=== PATIENT | male | born 1945 | race Caucasian/White ===

== ENCOUNTER 2018-01-11 21:02 | Emergency (ER) | END 2018-01-12 07:29 | disposition short-term general hospital (02) ==

== ENCOUNTER 2018-04-26 02:55 | Observation (INO) | END 2018-04-27 12:37 | disposition home health service (06) ==

== ENCOUNTER 2018-10-09 07:00 | Day surgery (SDC) | payer MEDICARE, OTHER ==
--- NOTE | 2018-10-08 13:09 | PREOPHP ---
DATE OF ADMISSION: 10/09/2018 HISTORY OF PRESENT ILLNESS: This 72-year-old patient is admitted for elective cataract surgery of th e right eye. The patient notes a history of decreased vision over the past year's time without prio r history of eye disease or injury. The patient does have a history of prior coronary artery bypass graft surgery in 2001. CURRENT MEDICATIONS: Include: 1. Amlodipine. 2. Rosuvastatin. 3. Metoprolol. 4. Potassium chloride. 5. Furosemide. 6. Tamsulosin. 7. Finasteride. 8. Esomeprazole. 9. Plavix. The patient has discontinued the tamsulosin and the Plavix prior to surgery. ALLERGIES: 1. PENICILLIN. 2. MORPHINE. PHYSICAL EXAMINATION: The visual acuity with best correction is 20/70 in the right eye and 20/30 in the left eye. Slit lamp examination reveals anterior cortical nuclear sclerotic and posterior subcap sular cataract in the right eye. The left eye has anterior cortical and nuclear sclerotic cataract c hanges. Applanation tonometry is 17 mmHg. Examination of the retina is within normal limits. DIAGNOSIS: Mixed cataract, right eye. PLAN: Cataract extraction with lens implant, right eye. The risks and alternatives to the surgery h ave been discussed with the patient, and the patient has opted to proceed with surgery in hopes of im proving visual acuity leading to greater ability to perform activities of daily living. Dictated By: MELONIE NINO/SHANTELLE Conf#: [id number] DID#: [id number]
[2018-10-09] VITALS (18 sets, daily range): BP systolic 108–169; BP diastolic 57–83; PULSE 64–78; RESP 18–25; Ht 172.7 cm; Wt 94.9 kg
[~2018-10-09] VITALS: Ht 172.7 cm; Wt 94.9 kg
[~2018-10-09 07:00] MED LIST: AZIT250T13 PO; CLOP75TA19 PO; CYCLOPENTOLATE/PHENYLEPH 2 ML OPH RIGHT EYE SCH; DICLOFENAC 0.1% 2.5 ML OPH RIGHT EYE SCH; ESOM40CA PO; FURO40TA4 PO; HYDR-3980 PO; ISOS20TA19 PO; LINA145C PO; LOSA50TA2 PO; METO-429 PO; MOXIFLOXACIN 0.5% 3 ML OPH RIGHT EYE SCH; POLY15DR30 BOTH EYES; POTA10TA37 PO; ROSU10TA55 PO; SOD CHLORIDE 0.9% 1,000 ML IV SCH; TAMS0.4C2 PO; TROPICAMIDE 1% 15 ML OPH RIGHT EYE SCH
[2018-10-09] MEDS ORDERED: METO-429 PO (07:35)
[2018-10-09] MEDS ORDERED: ISOS10TA2 PO (07:36)
[2018-10-09] MEDS ORDERED: AMLO-147 PO (07:36)
[2018-10-09] MEDS ORDERED: POTA8TAB2 PO (07:37)
[2018-10-09] MEDS ORDERED: hydrALAzine 20 MG INJ ONE ×2 (08:00→08:55)
--- NOTE | 2018-10-09 08:03 | PREAC ---
Date/Time of Note Date/Time of Note DATE: 10/09/18 TIME: 08:00 Anesthesia Eval and Record Evaluation Time Pre-Procedure Interview DATE: 10/09/18 TIME: 08:00 Age 72 Sex male NPO: 8 hrs (for solids. >2 hours for clears (water)) Preoperative diagnosis right cataract Planned procedure right cataract extraction, intraocular lens implant Past Medical History Past Medical History: Includes Cardio: HTN, CAD, PTCA/Stent, CHF Pulm: COPD, Other (lung cancer ) Renal: BPH GI: GERD Surgery & Anesthesia Issues No known issue Meds Anticoagulation: Yes (plavix held x 1 week) Beta Melody within 24 hr: Yes Reason Beta Melody not given: Bradycarida, Hypotension Reported Medications Potassium Chloride* (Klor-Con*) 8 Meq Tablet.sa, 8 MEQ PO BID, TAB 10/09/18 Amlodipine Besylate* (Amlodipine Besylate*) 10 Mg Tablet, 10 MG PO DAILY, #30 TAB 10/09/18 Isosorbide Dinitrate* (Isosorbide Dinitrate*) 10 Mg Tablet, 10 MG PO TID, TAB 10/09/18 Tamsulosin Hcl* (Tamsulosin Hcl*) 0.4 Mg Cap.er.24h, 0.4 MG PO BID, CAP 04/25/18 Furosemide* (Furosemide*) 40 Mg Tablet, 40 MG PO DAILY, TAB 04/25/18 Clopidogrel Bisulfate* (Clopidogrel Bisulfate*) 75 Mg Tablet, 75 MG PO DAILY, #30 TAB 04/25/18 Discontinued Reported Medications Metoprolol Tartrate* (Lopressor*) 50 Mg Tab, 50 MG PO BID, #60 TAB 10/09/18 Hydrocodone/Acetaminophen ([place] 10-325 Tablet) 1 Each Tablet, 1 EACH PO NEEDED, TAB 04/25/18 Linaclotide (LINZESS) 145 Mcg Capsule, 145 MCG PO DAILY, #30 CAP 04/25/18 Rosuvastatin Calcium* (Crestor*) 10 Mg Tablet, 10 MG PO QHS, #30 TAB 04/25/18 Potassium Chloride* (K-Dur*) 10 Meq Tab.prt.sr, 10 MEQ PO DAILY, TAB 04/25/18 Esomeprazole Mag Trihydrate (Nexium) 40 Mg Capsule.dr, 40 MG PO DAILY, #30 CAP 04/25/18 Discontinued Scripts Metoprolol Tartrate* (Lopressor*) 50 Mg Tab, 25 MG PO BID, #60 TAB Prov:MELINA SIMPSON MD 04/27/18 Polyvinyl Alcohol* (Polyvinyl Alcohol*) 15 Ml Drops, 2 DROP BOTH EYES QID PRN for red eyes, #1 BOTTLE Prov:MELINA SIMPSON MD 04/26/18 Azithromycin* (Azithromycin*) 250 Mg Tablet, 250 MG PO DAILY, #4 TAB Prov:MELINA SIMPSON MD 04/26/18 Isosorbide Dinitrate* (Isosorbide Dinitrate*) 20 Mg Tablet, 20 MG PO TID for 30 Days, #90 TAB Prov:MELINA SIMPSON MD 04/26/18 Losartan Potassium* (Cozaar*) 50 Mg Tablet, 50 MG PO DAILY for 30 Days, #30 TAB Prov:MELINA SIMPSON MD 04/26/18 Current Medications Diclofenac Sodium (Voltaren 0.1%) 1 drop Q5 MIN X 3 RIGHT EYE Last administered on 10/09/18 07:39; Admin Dose 1 DROP; Start 10/09/18 at 06:00 Tropicamide (Mydriacyl 1%) 1 drop Q5 MIN X3 RIGHT EYE Last administered on 10/09/18 07:39; Admin Dose 1 DROP; Start 10/09/18 at 06:00 Moxifloxacin HCl (Vigamox) 1 drop Q5 MIN X 3 RIGHT EYE Last administered on 10/09/18 07:38; Admin Dose 1 DROP; Start 10/09/18 at 06:00 Cyclopentolate/ Phenylephrine (Cyclomydril Oph 2 ml) 1 drop Q5 MIN X 3 RIGHT EYE Last administered on 10/09/18 07:38; Admin Dose 1 DROP; Start 10/09/18 at 06:00 Sodium Chloride 1,000 ml @ 25 mls/hr Q24H IV Last administered on 10/09/18 07:38; Admin Dose 25 MLS/HR; Start 10/09/18 at 06:00 Meds reviewed: Yes Allergies Coded Allergies: Penicillins (Verified Allergy, Unknown, 10/09/18) meperidine HCl (Verified Allergy, Unknown, 10/09/18) morphine (Verified Allergy, Unknown, 10/09/18) Allergies Reviewed: Yes Labs/Studies Labs Reviewed: Reviewed by anesthesiologist test: N/A Studies: ECG Pre-procedure Exam Last vitals Vital Signs Date Temp Pulse Resp B/P (MAP) Pulse Ox O2 O2 Flow FiO2 Time Delivery Rate 10/09/18 97.9 70 20 169/83 96 Room Air 07:51 (111) Airway: Adequate mouth opening, Adequate thyromental dist Mallampati: Mallampati II Teeth: Normal Lung: Normal Heart: Normal ASA Physical Status ASA physical status: 3 Emergency: None Planned Anesthetic General/MAC: Mask Planned Pain Management Parenteral pain med Pre-operative Attestations Prior to commencing anesthesia and surgery, the patient was re-evaluated, there was verification of: *The patient's identity *The results of appropriate recent lab work and preoperative vital signs *The above evaluation not changing prior to induction *Anesthetic plan, risk benefits, alternative and complications discussed with patient/family; questions answered; patient/family understands, accepts and wishes to proceed. DIANA HINDS MD Oct 09, 2018 08:03
[2018-10-09] MEDS ORDERED: hydrALAzine 20 MG INJ IV ONE (08:15)
[2018-10-09] MEDS ORDERED: FENTAnyl 50 MCG/ML VIAL IV PRN (08:30)
[2018-10-09] MEDS ORDERED: ONDANSETRON 4 MG INJ IV PRN (08:30)
[2018-10-09] MEDS ORDERED: hydrALAzine 20 MG INJ IV PRN (08:30)
[2018-10-09] MEDS ORDERED: HYDROmorphONE 1 MG/5 ML IV SYRINGE IV PRN ×2 (08:30)
[2018-10-09] MEDS ORDERED: LABETALOL HCL 20MG INJ IV PRN (08:30)
[2018-10-09] MEDS ORDERED: OXYCODONE/ACETAMINOPHEN (5/325) TAB PO PRN (08:30)
[2018-10-09] MEDS ORDERED: DIPHENHYDRAMINE 50 MG INJ IV PRN (08:30)
[2018-10-09] MEDS ORDERED: FENTAnyl 50 MCG/ML VIAL ONE (08:38)
[2018-10-09] MEDS ORDERED: MIDAZOLAM 1 MG/ML 2 ML INJ ONE (08:38)
[2018-10-09] MEDS ORDERED: PROPOFOL 20 ML ONE (08:55)
--- NOTE | 2018-10-09 09:32 | SIPON ---
Date/Time of Note Date/Time of Note DATE: 10/09/18 TIME: 09:30 Operative Report Preoperative Diagnosis cortical & posterior subcapsular cataract od Postoperative Diagnosis same Operation/Procedure Performed cataract extraction with lens implant od Surgeon melonie julio psychiatric assistant none Anesthesia: MAC Estimated blood loss: none Transfusion Required none Specimen none Grafts/Implants posterior chamber lens implant Complications none MELONIE JULIO MD Oct 09, 2018 09:31
[2018-10-09] MEDS ORDERED: NA HYALURONATE/CHONDROITIN 0.5 ML SYG ONE (09:33)
[2018-10-09] MEDS ORDERED: DEXAMETHASONE 4 MG/ML 1 ML INJ ONE (09:33)
[2018-10-09] MEDS ORDERED: LIDOCAINE 4% (MPF) 5 ML INJ ONE (09:33)
[2018-10-09] MEDS ORDERED: GENTAMICIN 80 MG INJ ONE (09:33)
--- NOTE | 2018-10-09 09:33 | PAC ---
Date/Time of Note Date/Time of Note DATE: 10/09/18 TIME: 09:31 Post-Anesthesia Notes Post-Anesthesia Note Last documented vital signs Vital Signs Date Temp Pulse Resp B/P (MAP) Pulse Ox O2 O2 Flow FiO2 Time Delivery Rate 10/09/18 97.9 70 20 169/83 96 Room Air 07:51 (111) Activity: WNL Respiratory function: WNL Cardiovascular function: WNL Mental status: Baseline Pain reasonably controlled: Yes Hydration appropriate: Yes Nausea/Vomiting absent: Yes Comments BP: 138/64 HR: 67 RR: 15 T: 98 SaO2: 96% room air DIANA HINDS MD Oct 09, 2018 09:33
[2018-10-09] MEDS ORDERED: CARBACHOL 0.01% 1.5 ML OPH INJ ONE (09:34)
--- NOTE | 2018-10-09 10:08 | OPR ---
DATE OF OPERATION: 10/09/2018 PREOPERATIVE DIAGNOSIS: Cortical and posterior subcapsular cataract, right eye. POSTOPERATIVE DIAGNOSIS: Cortical and posterior subcapsular cataract, right eye. OPERATION PERFORMED: Cataract extraction with lens implant, right eye. SURGEON: Melonie Julio M.D. ANESTHESIA: Local standby. ANESTHESIOLOGIST: Dr. Keller. PROCEDURE: The patient was brought to the operating room and placed on the table with an IV in place and the patient attached to an court monitor. Oxygen was given via face mask. After some intravenous sedation was administered, local anesthesia was given using Xylocaine 2% with epinephrine, mixed with Marcaine 0.5%. This was given in a lid block and retrobulbar injection. The patient was then prepped and draped in the usual sterile manner. A wire lid speculum was inserted between the lids of the right eye. A Superblade was used to enter the anterior chamber at the corneoscleral limbus at the 10:30 o'clock position. A separate incision was made using a 3.0-mm keratome which entered the corneoscleral junction at the 12 o'clock position. Through this 3-mm opening, an irrigating cystotome was introduced into the anterior chamber. The chamber was filled with Viscoat and an anterior capsulotomy was performed. Balanced salt solution was then used for hydrodissection of the lens. A phacoemulsification handpiece was then brought into the field and introduced into the anterior chamber. The lens nucleus was emulsified using a deep groove and cracking the nucleus into quadrants. Following this, each quadrant was aspirated and emulsified at the pupillary margin. After this was completed, the irrigation/aspiration handpiece was brought to the field, introduced into the posterior chamber, and the lens cortical material was removed. When this was completed, additional Viscoat was injected into the anterior and posterior chambers. The 3-mm opening had its internal lips enlarged, and then the posterior chamber intraocular lens measuring 20.5 diopters ([employer] model LI61AO) was then injected into the posterior chamber using the lens injector system. As the lens was implanted into the posterior chamber it noted that the leading haptic broke through the capsule and the lens optic appeared to move slightly posteriorly. At this point, it was decided to enlarge the corneal wound to a 5 mm and remove the lens implant and then a limited anterior vitrectomy was performed until there was no vitreous in the anterior chamber or at the lips of the wound. Examination of the posterior chamber revealed that there was sufficient peripheral capsular support for a posterior chamber intraocular lens and then Provisc was injected into the posterior chamber to clearly define the zone anterior to the lens capsule. The lens was reinserted into the posterior chamber with the haptics resting on the peripheral capsule lens remained stable and despite external pressure on the eye. A Sinskey hook was then used to rotate the intraocular lens so that the lips were oriented in the horizontal meridian. A total of 3 10-0 nylon sutures were placed. Prior to tying, the irrigation/aspiration handpiece was reintroduced into the anterior chamber to remove the Provisc. Miochol was instilled to constrict the pupil, and then the 10-0 nylon sutures were tied. The ends were cut short and then the knot was buried. The speculum was removed and an injection containing 0.5 mL of gentamicin and 0.5 mL of dexamethasone was injected into the sub-Tenon space inferiorly and then Ciprofloxacin drops placed on the surface of the eye and a patch was applied and the patient left the operating room in satisfactory condition. Dictated By: MELONIE NINO/SHANTELLE Conf#: [id number] DID#: [id number] CC: MELONIE JULIO MD;*EndCC* MTDD
== END 2018-10-09 11:10 | disposition home or self-care (01) ==
LOC: SDS 07:00
PROVIDERS: ATTEND Ophthalmology
DX: H25.041 Posterior subcapsular polar age-related cataract, right eye (principal); I11.0 Hypertensive heart disease with heart failure; I50.9 Heart failure, unspecified; I25.10 Atherosclerotic heart disease of native coronary artery without angina pectoris; J44.9 Chronic obstructive pulmonary disease, unspecified
CPT/HCPCS: 66984; J0360; J1100; J1580; J2250; J3010; J7030; V2632

== ENCOUNTER 2019-01-05 21:37 | Inpatient (IN) | payer MEDICARE, OTHER ==
[~2019-01-05] VITALS: Ht 172.7 cm; Wt 96.7 kg
[~2019-01-05 21:37] MED LIST changes: +AMLO-147 PO; -AZIT250T13 PO; -CYCLOPENTOLATE/PHENYLEPH 2 ML OPH RIGHT EYE SCH; -DICLOFENAC 0.1% 2.5 ML OPH RIGHT EYE SCH; -ESOM40CA PO; -HYDR-3980 PO; +ISOS10TA2 PO; -ISOS20TA19 PO; -LINA145C PO; -LOSA50TA2 PO; -METO-429 PO; -MOXIFLOXACIN 0.5% 3 ML OPH RIGHT EYE SCH; -POLY15DR30 BOTH EYES; -POTA10TA37 PO; +POTA8TAB2 PO; -ROSU10TA55 PO; -SOD CHLORIDE 0.9% 1,000 ML IV SCH; -TROPICAMIDE 1% 15 ML OPH RIGHT EYE SCH
[2019-01-05] MEDS ORDERED: AZITHROMYCIN 500MG/NS (PMX) 250 ML IV STA (22:07)
[2019-01-05] MEDS ORDERED: ALBUTEROL 0.083% (NEB) 2.5 MG/3 ML AMP NEB STA (22:07)
[2019-01-05] MEDS ORDERED: CEFTRIAXONE 1 GM/50 ML (PMX) 50 ML IVPB STA (22:07)
[2019-01-05] MEDS ORDERED: SODIUM CHLORIDE 0.9% 1L BAG IV* STA (22:07)
[2019-01-05] MEDS ORDERED: IPRATROPIUM (NEB) 0.5 MG/2.5 ML AMP NEB STA (22:07)
--- NOTE | 2019-01-05 22:09 | ERD ---
ER Documentation Chief Complaint Chief Complaint generalize body weakness/sob x 2 weeks. hx of lung ca HPI 73-year-old male with a history of COPD and lung cancer status post radiation treatment presenting with generalized body weakness and shortness of breath that has been worsening over the past 2 weeks. Patient states that he never followed up for his cancer treatment after the radiation therapy done at [facility]. Last night he noticed that he had a fever. He continuously has a dry cough that has not changed. However he has been getting increasingly short of breath. He denies any associated chest pain, leg swelling, or decrease in urination. No hemoptysis. ROS All systems reviewed and are negative except as per history of present illness. Medications Home Meds Reported Medications Potassium Chloride* (Klor-Con*) 8 Meq Tablet.sa, 8 MEQ PO BID, TAB 10/09/18 Amlodipine Besylate* (Amlodipine Besylate*) 10 Mg Tablet, 10 MG PO DAILY, #30 TAB 10/09/18 Isosorbide Dinitrate* (Isosorbide Dinitrate*) 10 Mg Tablet, 10 MG PO TID, TAB 10/09/18 Tamsulosin Hcl* (Tamsulosin Hcl*) 0.4 Mg Cap.er.24h, 0.4 MG PO BID, CAP 04/25/18 Furosemide* (Furosemide*) 40 Mg Tablet, 40 MG PO DAILY, TAB 04/25/18 Clopidogrel Bisulfate* (Clopidogrel Bisulfate*) 75 Mg Tablet, 75 MG PO DAILY, #30 TAB 04/25/18 Allergies Allergies: Coded Allergies: Penicillins (Verified Allergy, Unknown, 10/09/18) meperidine HCl (Verified Allergy, Unknown, 10/09/18) morphine (Verified Allergy, Unknown, 10/09/18) PMhx/Soc History of Surgery: Yes (cabg,cardiac stent) Anesthesia Reaction: No Hx Neurological Disorder: No Hx Respiratory Disorders: Yes (Lung cancer, COPD) Hx Cardiac Disorders: Yes (htn,CABG,CARDIAC STENTS,CHF) Hx Psychiatric Problems: No Hx Miscellaneous Medical Probl: No Hx Alcohol Use: No Hx Substance Use: No Hx Tobacco Use: No Smoking Status: Never smoker FmHx Family History: coronary disease; No diabetes Physical Exam Vitals Vital Signs Date Temp Pulse Resp B/P (MAP) Pulse Ox O2 O2 Flow FiO2 Time Delivery Rate 01/05/19 88 20 94 Nasal 2.0 23:07 Cannula 01/05/19 90 27 148/77 94 Nasal 2.0 22:58 (100) Cannula 01/05/19 Nasal 21:53 Cannula 01/05/19 98.9 86 18 154/75 79 21:39 (101) Physical Exam Const: Chronically ill-appearing, appears to be in respiratory distress but speaking in full sentences Head: Atraumatic Eyes: Normal Conjunctiva ENT: Dry mucous membranes. Normal External Ears, Nose and Mouth. Neck: Full range of motion. No meningismus. +JVD Resp: Diminished breath sounds bilaterally with mild wheezing Cardio: Regular rate and rhythm, no murmurs Abd: Soft, non tender, non distended. Normal bowel sounds Skin: No petechiae or rashes Back: No midline or flank tenderness Ext: No cyanosis, trace bilateral lower extremity edema. No calf tenderness Neur: Awake and alert Psych: Normal Mood and Affect Result Diagram: 01/05/19214801/05/192148 Results 24 hrs Laboratory Tests Test 01/05/19 21:49 01/05/19 21:51 01/05/19 21:57 White Blood Count 10.9 10^3/ul Red Blood Count 5.11 10^6/ul Hemoglobin 14.2 g/dl Hematocrit 46.8 % Mean Corpuscular Volume 91.6 fl Mean Corpuscular 27.8 pg Hemoglobin Mean Corpuscular 30.3 g/dl Hemoglobin Concent Red Cell Distribution 13.8 % Width Platelet Count 239 10^3/UL Mean Platelet Volume 10.9 fl Immature Granulocytes % 0.300 % Neutrophils % 72.6 % Lymphocytes % 17.1 % Monocytes % 7.8 % Eosinophils % 1.7 % Basophils % 0.5 % Nucleated Red Blood Cells 0.0 /100WBC % Immature Granulocytes # 0.030 10^3/ul Neutrophils # 7.9 10^3/ul Lymphocytes # 1.9 10^3/ul Monocytes # 0.9 10^3/ul Eosinophils # 0.2 10^3/ul Basophils # 0.1 10^3/ul Nucleated Red Blood Cells 0.0 10^3/ul # Prothrombin Time 13.7 Sec Prothrombin Time Ratio 1.1 INR International 1.04 Normalized Ratio Activated 39.9 Sec Partial Thromboplast Time Sodium Level 142 mmol/L Potassium Level 4.1 mmol/L Chloride Level 99 mmol/L Carbon Dioxide Level 36 mmol/L Anion Gap 7 Blood Urea Nitrogen 27 mg/dl Creatinine 1.46 mg/dl Est Glomerular Filtrat mL/min Rate mL/min Glucose Level 118 mg/dl Calcium Level 8.1 mg/dl Total Bilirubin 0.6 mg/dl Direct Bilirubin 0.00 mg/dl Indirect Bilirubin 0.6 mg/dl Aspartate Amino 39 IU/L Transf (AST/SGOT) Alanine 45 IU/L Aminotransferase (ALT/SGPT ) Alkaline Phosphatase 76 IU/L Troponin I 0.649 ng/ml B-Type Natriuretic Peptide 2870 PG/ML Total Protein 7.3 g/dl Albumin 3.8 g/dl Globulin 3.50 g/dl Albumin/Globulin Ratio 1.08 Blood Gas Specimen Source Blood arterial Arterial Blood Date Drawn 01/05/2019 9:55:43 PM Arterial Blood pH 7.326 (Temp corrected) Arterial Blood pCO2 65.4 mmhg (Temp correct) Arterial Blood pO2 67.7 mmHG (Temp corrected) Arterial Blood HCO3 33.4 mmol/L Arterial Blood Base Excess 5.1 mmol/L Arterial Blood 92.3 mmHG Oxygen Saturation Levon Test ACCEPTAB Arterial Blood Gas Right Radial Puncture Site Arterial 1.3 % Blood Carboxyhemoglobin Arterial Blood 0.3 % Methemoglobin Blood Gas A-a O2 47.5 mmHg Differential Oxyhemoglobin Percent 90.8 % Blood Gas Temperature 37.0 C Blood Gas Modality NASAL CANNULA FiO2 27.0 % Blood Gas Notified Whom MM Blood Gas Notified Time 01/05/2019 10:03:18 PM POC Venous Lactate 0.7 mmol/L Current Medications Medications Dose Sig/Chantelle Start Time Status Last (Trade) Ordered Route PRN Stop Time Admin Dose Reason Admin Sodium 2,050 ml BOLUS OVER 2 01/05/19 DC 01/05/19 Chloride HOURS STAT 22:07 22:17 (NS) IV* 01/05/19 22:09 Ceftriaxone 50 ml @ ONCE STAT 01/05/19 DC 01/05/19 Sodium 100 mls/hr IVPB 22:07 22:17 01/05/19 22:36 Azithromycin 250 ml @ ONCE STAT 01/05/19 DC 01/05/19 250 mls/hr IV 22:07 22:40 01/05/19 23:06 Albuterol 5 mg ONCE STAT 01/05/19 DC 01/05/19 (Proventil NEB 22:07 23:07 0.083% (Neb)) 01/05/19 22:09 Ipratropium 0.5 mg ONCE STAT 01/05/19 DC 01/05/19 [place] NEB 22:07 23:07 (Atrovent 01/05/19 22:09 0.02% (Neb)) Aspirin 162 mg ONCE ONCE 01/05/19 DC 01/05/19 (Aspirin) PO 23:00 22:42 01/05/19 23:01 1 tab ONCE ONCE 01/05/19 DC 01/05/19 Acetaminophen PO 23:30 23:04 / 01/05/19 23:31 Hydrocodone Bitart ([place] (10)) Zolpidem 5 mg HS 01/05/19 Tartrate REPEAT X 1 23:30 (Ambien) PRN PO INSOMNIA Ondansetron 4 mg Q4 PRN IV 01/05/19 HCl (Zofran nausea 23:30 Inj) Morphine 2 mg Q4 PRN IV 01/05/19 Sulfate moderate pain 23:30 (morphine) Procedures/MDM EMERGENT LABS AND DIAGNOSTIC STUDIES: Lab Results above were reviewed and interpreted by me. CBC: no anemia or evidence of infection CMP: Evidence of renal failure with BUN and creatinine elevation. No evidence of clinically significant electrolyte abnormality, acidosis, hypoglycemia, liver disease, or biliary obstruction Troponin elevated, concerning for cardiac ischemia Lactate within normal limits without evidence of sepsis or tissue hypoperfusion ABG shows mild acidosis with hypercapnia and hypoxemia 12-lead EKG was interpreted by Martha Palafox MD: Normal Sinus Rhythm with ventricular rate of 74 beats per minute LVH with repolarization abnormality diffuse T wave inversions Abnormal EKG, no STEMI Radiology Results as interpreted by Radiology below were reviewed by Hao Palafox MD: Chest x-ray: IMPRESSION: 1. Cardiomegaly and new mild failure. 2. Differential considerations include interval right lung base pneumonia, with superimposed mild failure. Initial Nursing notes reviewed. Previous Medical Records requested via the Electronic Health Record. EMERGENCY DEPARTMENT COURSE / MEDICAL DECISION MAKING: Admit MDM: Patient is presenting with evidence of acute respiratory failure with hypoxia and hypercapnia. Given his history of fevers at home as well as cough, I was concerned about possible pneumonia. For this reason, sepsis work-up was initiated and broad-spectrum antibiotics were given. However there is no evidence of severe sepsis or septic shock. Patient's oxygenation did improve with supplemental oxygen and he did not require any further airway interventions. His troponin was positive, consistent with non-ST elevation MT. He was treated with aspirin. I did consider pulmonary embolism as part of the differential for his shortness of breath, but I have a lower concern for this as he has other findings that would explain his dyspnea. Patient's symptoms have not stabilized, and the patient is at risk of rapid decompensation. The patient will be admitted for careful hydration, antibiotic therapy, and infectious source control. I will defer further work-up to the inpatient team Critical Care Time: 35 minutes Treatments/Evaluations: Close monitoring and treatment of unstable vital signs, cardiorespiratory, and neurologic status, while maintaining tight balance of fluid, respiratory, and cardiac interventions. This includes the administration of emergency fluid management while maintaining close respiratory support as well as the provision of immediate and broad-spectrum antibiotic therapy, while performing a simultaneous assessment for possible sources in order to direct targeted therapy. This time includes discussing the case with the patient and the patients family.This time also includes the consideration for invasive and chemical support to prevent cardiopulmonary collapse. This time does not include all procedures stated elsewhere in this record. This time also includes reviewing old records, labs and radiological studies. This time includes examining and reexamining the patient. Additionally, this time also includes arranging care with admitting and consulting physicians. Accepting Care Team: Current data and ongoing care discussed. Time: Time of admission Primary Provider: Dr. Marcie Stephens Diagnosis: Primary Impression: Acute respiratory failure with hypoxia and hypercapnia Additional Impressions: Non-STEMI (non-ST elevated myocardial infarction) Renal insufficiency History of lung cancer Pneumonia Pneumonia type: due to unspecified organism Laterality: unspecified laterality Lung location: unspecified part of lung Qualified Codes: J18.9 - Pneumonia, unspecified organism Condition: Serious EKMEKJIAN,NELLIE R. MD Jan 05, 2019 22:09
[2019-01-05] MEDS ORDERED: ASPIRIN 81 MG TAB PO ONE (23:00)
[2019-01-05] MEDS ORDERED: morphine 2 MG INJ IV PRN (23:30)
[2019-01-05] MEDS ORDERED: HYDROCODONE/APAP (10/325) TAB PO ONE (23:30)
[2019-01-06] VITALS (8 sets, daily range): BP systolic 112–164; BP diastolic 48–82; PULSE 85–94; RESP 18–22; Ht 172.7 cm; Wt 96.7 kg
[2019-01-06] MEDS ORDERED: ONDANSETRON 4 MG INJ IV PRN
[2019-01-06] MEDS: ACETAMINOPHEN 325 MG TAB PO PRN ×4 (00:29→21:51)
[2019-01-06] MEDS: ALBUTEROL/IPRATROPIUM (NEB) 3 ML AMP HHN SCH ×6 (01:54→21:21)
[2019-01-06] MEDS: ZOLPIDEM 5 MG TAB PO PRN (02:19)
[2019-01-06] MEDS: LEVOFLOXACIN 500MG/D5W (PMX) 100 ML IVPB SCH (05:31)
[2019-01-06] MEDS ORDERED: CLOPIDOGREL 75 MG TAB PO SCH (09:00)
[2019-01-06] MEDS ORDERED: AMLODIPINE 10 MG TAB PO SCH (09:00)
[2019-01-06] MEDS: TAMSULOSIN (SR) 0.4 MG CAP PO SCH ×2 (10:04→20:05)
[2019-01-06] MEDS: ISOSORBIDE DINITRATE 10 MG TAB PO SCH ×3 (10:04→20:06)
--- NOTE | 2019-01-06 13:21 | CONS ---
Assessment/Plan Assessment/Plan Hospital Course (Demo Recall) 1. Non-ST elevation myocardial infarction: Most likely type II currently with no anginal chest pain. 2. Fatigue and weakness possible pneumonia 3. Lung cancer 4. Coronary artery disease 5. History of coronary bypass graft 6. History of PCI x2 7. History of hypertension currently hypotensive 8. Dyslipidemia Recommendation: Continue with Plavix We will check a lipid panel and statin will be added [facility] avoid hypotension given his reported low blood pressure at home. Antibiotic management as per internal medicine. We will also order a procalcitonin level Nitrates was added to be continued. Echocardiogram is pending We will repeat the cardiac enzyme Low-dose beta-sherly will be added. Thank you for this referral. We will continue to follow along with you until Dr. Shoemaker returns on Monday TONYA LUNA MD [facility] Consultation Date/Type/Reason Admit Date/Time Jan 05, 2019 at 23:34 Date of Consultation: Jan 06, 2019 Type of Consult Cardiology Reason for Consultation + trop Requesting Provider: TONIE MCCABE MD Date/Time of Note DATE: 01/06/19 TIME: 13:13 Hx of Present Illness Interventional cardiology consultation note Chief complaint: weakness, f/c Reason for consult: + trop History of present illness: Thank you for this referral. History was obtained from the patient review of the old chart discussion position and staff. This is a pleasant 73-year-old gentleman with history of coronary artery disease status post chronic bypass graft, history of PCI x2, lung cancer status post radiation who came to emergency room with complaint of weakness and fever and chills. Patient did not take his temperature but said he felt hot and he had shivering and chills. He has cough but with no significant phlegm. Patient denies any left-sided chest pain or pressure today but his troponin has been mildly elevated for which he was kindly asked to evaluate and treat. Patient also said his blood pressure has been running low in the 90s at home and he was very weak Allergies: Penicillin meperidine morphine per review of the old chart. Medications were reviewed as per medical reconciliation sheet Family history: Mother and multiple family members on the mother side have had coronary artery disease. Social history: Has quit smoking many years ago Past medical history: Coronary artery disease status post coronary bypass grafting 2001 status post PCI in 2009 status post another PCI at [facility] in [place]. Hypertension lung cancer and left long status post radiation. Dyslipidemia Review of system: Patient denies all others except for above-mentioned Past Medical History Home Meds Reported Medications Potassium Chloride* (Klor-Con*) 8 Meq Tablet.sa, 8 MEQ PO BID, TAB 10/09/18 Amlodipine Besylate* (Amlodipine Besylate*) 10 Mg Tablet, 10 MG PO DAILY, #30 TAB 10/09/18 Isosorbide Dinitrate* (Isosorbide Dinitrate*) 10 Mg Tablet, 10 MG PO TID, TAB 10/09/18 Tamsulosin Hcl* (Tamsulosin Hcl*) 0.4 Mg Cap.er.24h, 0.4 MG PO BID, CAP 04/25/18 Furosemide* (Furosemide*) 40 Mg Tablet, 40 MG PO DAILY, TAB 04/25/18 Clopidogrel Bisulfate* (Clopidogrel Bisulfate*) 75 Mg Tablet, 75 MG PO every 2 days, #30 TAB 04/25/18 Medications Current Medications Levofloxacin/ Dextrose 100 ml @ 100 mls/hr DAILY@0600 IVPB Last administered on 01/06/19at 05:31; Admin Dose 100 MLS/HR; Start 01/06/19 at 06:00 Albuterol/ Ipratropium (Duoneb) 3 ml Q4 HHN Last administered on 01/06/19at 10:30; Admin Dose 3 ML; Start 01/06/19 at 01:00 Zolpidem Tartrate (Ambien) 5 mg HS MAY REPEAT X 1 PRN PO INSOMNIA Last administered on 01/06/19at 02:19; Admin Dose 5 MG; Start 01/05/19 at 23:30 Ondansetron HCl (Zofran Inj) 4 mg Q4 PRN IV nausea; Start 01/05/19 at 23:30 Morphine Sulfate (morphine) 2 mg Q4 PRN IV moderate pain; Start 01/05/19 at 23:30 Amlodipine Besylate (Norvasc) 10 mg DAILY PO Last administered on 01/06/19at 10:04; Admin Dose 10 MG; Start 01/06/19 at 09:00 Clopidogrel Bisulfate (plaVIX) 75 mg DAILY PO Last administered on 01/06/19at 10:04; Admin Dose 75 MG; Start 01/06/19 at 09:00 Isosorbide Dinitrate (Isordil) 10 mg TID PO Last administered on 01/06/19at 10:0 4; Admin Dose 10 MG; Start 01/06/19 at 09:00 Tamsulosin HCl (Flomax) 0.4 mg BID PO Last administered on 01/06/19at 10:04; Admin Dose 0.4 MG; Start 01/06/19 at 09:00 Ondansetron HCl (Zofran Inj) 4 mg ER BRIDGE PRN IV NAUSEA/VOMITING; Start 01/06/19 at 00:00; Stop 01/06/19 at 23:59 Acetaminophen (Tylenol Tab) 650 mg ER BRIDGE PRN PO .MILD PAIN 1-3 OR TEMP Last administered on 01/06/19at 00:29; Admin Dose 650 MG; Start 01/06/19 at 00:00; Stop 01/06/19 at 23:59 Acetaminophen (Tylenol Tab) 650 mg Q4H PRN PO MILD PAIN(1-3)OR ELEVATED TEMP Last administered on 01/06/19at 05:16; Admin Dose 650 MG; Start 01/06/19 at 05:30 Allergies: Coded Allergies: Penicillins (Verified Allergy, Unknown, 10/09/18) meperidine HCl (Verified Allergy, Unknown, 10/09/18) morphine (Verified Allergy, Unknown, 10/09/18) Past Surgical History Past Surgical Hx: coronary bypass surgery Social History Smoking Status: Never smoker Exam/Review of Systems Vital Signs Vitals Vital Signs Date Temp Pulse Resp B/P (MAP) Pulse Ox O2 O2 Flow FiO2 Time Delivery Rate 01/06/19 98.0 92 18 123/60 98 12:51 (81) 01/06/19 Nasal 5.0 10:30 Cannula Intake and Output 01/05/19 01/05/19 01/06/19 1515:00 23:00 07:00 IntakeIntake Total 250 ml BalanceBalance 250 ml Exam Exam General: no acute distress HEENT: NC/AT. pupils are equal. round. NECK: . no stridor. Chest: Status post sternotomy CV: RRR. systolic murmur; no gallop or rubs. PULM: no wheezing or rhonchi. GI: SOFT, NT, ND, no rebound or guarding Extremity: trace B/L LE edema. no clubbing. neuro: awake and alert, OX3. Psych: calm and pleasant rectal: deferred : normal EKG was personally reviewed normal sinus rhythm. LVH ST-T wave abnormalities. Chest x-ray shows: 1. Cardiomegaly and new mild failure. 2. Differential considerations include interval right lung base pneumonia, with superimposed mild failure. Labs Result Diagram: 01/05/19214801/05/192148 Results 24hrs Laboratory Tests Test 01/05/19 21:49 01/05/19 21:51 01/05/19 21:57 01/05/19 23:47 White Blood Count 10.9 #H Red Blood Count 5.11 Hemoglobin 14.2 Hematocrit 46.8 Mean Corpuscular 91.6 Volume Mean Corpuscular 27.8 L Hemoglobin Mean Corpuscular 30.3 L Hemoglobin Concen t Red Cell 13.8 Distribution Width Platelet Count 239 Mean Platelet 10.9 H Volume Immature 0.300 Granulocytes % Neutrophils % 72.6 Lymphocytes % 17.1 Monocytes % 7.8 Eosinophils % 1.7 Basophils % 0.5 Nucleated Red 0.0 Blood Cells % Immature 0.030 Granulocytes # Neutrophils # 7.9 H Lymphocytes # 1.9 Monocytes # 0.9 Eosinophils # 0.2 Basophils # 0.1 Nucleated Red 0.0 Blood Cells # Prothrombin Time 13.7 Prothrombin Time 1.1 Ratio INR International 1.04 Normalized Ratio Activated 39.9 H Partial Thrombopl ast Time Sodium Level 142 Potassium Level 4.1 Chloride Level 99 Carbon Dioxide 36 H Level Anion Gap 7 Blood Urea 27 H Nitrogen Creatinine 1.46 H Est Glomerular Filtrat Rate mL/min Glucose Level 118 Calcium Level 8.1 L Total Bilirubin 0.6 Direct Bilirubin 0.00 Indirect 0.6 Bilirubin Aspartate Amino 39 Transf (AST/SGOT) Alanine 45 Aminotransferase (ALT/SGPT) Alkaline 76 Phosphatase Troponin I 0.649 *H B-Type 2870 H Natriuretic Peptide Total Protein 7.3 Albumin 3.8 Globulin 3.50 H Albumin/Globulin 1.08 Ratio Blood Gas Blood arterial Specimen Source Arterial Blood 01/05/2019 9:55:4 Date Drawn 3 PM Arterial Blood pH 7.326 L (Temp corrected) Arterial Blood 65.4 H pCO2 (Temp correct) Arterial Blood 67.7 L pO2 (Temp corrected) Arterial Blood 33.4 H HCO3 Arterial Blood 5.1 H Base Excess Arterial Blood 92.3 L Oxygen Saturation Levon Test ACCEPTAB Arterial Blood Right Radial Gas Puncture Site Arterial 1.3 Blood Carboxyhemo globin Arterial Blood 0.3 Methemoglobin Blood Gas A-a O2 47.5 H Differential Oxyhemoglobin 90.8 L Percent Blood Gas 37.0 Temperature Blood Gas NASAL CANNULA Modality FiO2 27.0 Blood Gas MM Notified Whom Blood Gas 01/05/2019 10:03: Notified Time 18 PM POC Venous 0.7 Lactate Lactic Acid Level 0.7 Test 01/06/19 02:16 01/06/19 04:09 Lactic Acid Level 1.4 Troponin I 0.586 *H Medications Medications Current Medications Levofloxacin/ Dextrose 100 ml @ 100 mls/hr DAILY@0600 IVPB Last administered on 01/06/19at 05:31; Admin Dose 100 MLS/HR; Start 01/06/19 at 06:00 Albuterol/ Ipratropium (Duoneb) 3 ml Q4 HHN Last administered on 01/06/19at 10:30; Admin Dose 3 ML; Start 01/06/19 at 01:00 Zolpidem Tartrate (Ambien) 5 mg HS MAY REPEAT X 1 PRN PO INSOMNIA Last administered on 01/06/19at 02:19; Admin Dose 5 MG; Start 01/05/19 at 23:30 Ondansetron HCl (Zofran Inj) 4 mg Q4 PRN IV nausea; Start 01/05/19 at 23:30 Morphine Sulfate (morphine) 2 mg Q4 PRN IV moderate pain; Start 01/05/19 at 23:30 Amlodipine Besylate (Norvasc) 10 mg DAILY PO Last administered on 01/06/19at 10:04; Admin Dose 10 MG; Start 01/06/19 at 09:00 Clopidogrel Bisulfate (plaVIX) 75 mg DAILY PO Last administered on 01/06/19 10:04; Admin Dose 75 MG; Start 01/06/19 at 09:00 Isosorbide Dinitrate (Isordil) 10 mg TID PO Last administered on 01/06/19 10:04; Admin Dose 10 MG; Start 01/06/19 at 09:00 Tamsulosin HCl (Flomax) 0.4 mg BID PO Last administered on 01/06/19 10:04; Admin Dose 0.4 MG; Start 01/06/19 at 09:00 Ondansetron HCl (Zofran Inj) 4 mg ER BRIDGE PRN IV NAUSEA/VOMITING; Start 01/06/19 at 00:00; Stop 01/06/19 at 23:59 Acetaminophen (Tylenol Tab) 650 mg ER BRIDGE PRN PO .MILD PAIN 1-3 OR TEMP Last administered on 01/06/19at 00:29; Admin Dose 650 MG; Start 01/06/19 at 00:00; Stop 01/06/19 at 23:59 Acetaminophen (Tylenol Tab) 650 mg Q4H PRN PO MILD PAIN(1-3)OR ELEVATED TEMP Last administered on 01/06/19at 05:16; Admin Dose 650 MG; Start 01/06/19 at 05:30 TONYA LUNA MD Jan 06, 2019 13:21
--- NOTE | 2019-01-06 15:55 | HP ---
DATE OF ADMISSION: 01/05/2019 CHIEF COMPLAINT: Shortness of breath x2 weeks with progressive worsening as well as generalized weak ness. HISTORY OF PRESENT ILLNESS: A 73-year-old male with a history of COPD and lung cancer status post ra diation therapy at [facility], presented to emergency room with complaint of shortness of breath x2 weeks and generalized weakness. The patient noted that his symptoms were progressively worsening. He denies hemoptysis. No chest pain. The patient was supposed to follow up at [facility] followin g his radiation therapy, but he failed to do so. He had a fever the night prior to admission. Initi al evaluation revealed significant hypoxia. O2 saturation was in the range of 70s on room air. Ches t x-ray showed cardiomegaly and interval right lung base infiltrate consistent with pneumonia. WBC w as 10.9. Initial troponin was elevated to 0.649 with repeat troponin 0.586. PAST MEDICAL HISTORY: 1. COPD. 2. Coronary artery disease. 3. Hypertension. 4. Benign prostatic hyperplasia. PAST SURGICAL HISTORY: 1. Status post coronary artery bypass graft in 2001. 2. Status post cardiac stenting. MEDICATIONS PRIOR TO ADMISSION: 1. Potassium chloride 8 mEq daily. 2. Amlodipine 10 mg daily. 3. Isosorbide 10 mg t.i.d. 4. Flomax 0.4 mg b.i.d. 5. Lasix 40 mg b.i.d. 6. Plavix 75 mg daily. ALLERGIES: 1. PENICILLIN. 2. MEPERIDINE. 3. MORPHINE. PHYSICAL EXAMINATION: GENERAL: Well-developed, well-nourished male who is in no apparent distress. VITAL SIGNS: Stable. He is afebrile. HEENT: Extraocular muscles intact. Pupils are equal and reactive to light bilaterally. Sclerae are anicteric. Oropharynx is clear and moist. NECK: Supple, no JVD, no carotid bruits. LUNGS: Bilateral rhonchi. No wheezes. CARDIAC: Regular rate and rhythm. No murmurs, rubs or gallops. ABDOMEN: Soft, nontender, nondistended, normoactive bowel sounds. EXTREMITIES: No clubbing, cyanosis, or edema. NEUROLOGICAL: Nonfocal. LABORATORY DATA: Basic metabolic panel shows BUN of 27, creatinine of 1.46. Initial troponin 0.649 with a repeat troponin of 2.586. White blood cell count is 10.9, platelet count 239, hemoglobin 14.2 . ASSESSMENT: 1. A 73-year-old male with a community-acquired pneumonia. 2. Acute hypoxemic respiratory failure. 3. Chronic obstructive pulmonary disease exacerbation. 4. History of lung cancer status post radiation therapy, rule out recurrent cancer. 5. Coronary artery disease status post coronary artery bypass graft followed by cardiac stenting. 6. Hypertension. 7. Benign prostatic hypertrophy. 8. Stage III chronic kidney disease. 9. Elevated troponin of unclear significance. PLAN: 1. Admit to telemetry. Continue IV Levaquin. 2. IV Solu-Medrol. 3. Respiratory treatment. 4. Chest CT without contrast. 5. A 2D echo. 6. Pulmonary and cardiology consultations were requested. Dictated By: TONIE HUNT/NTS Conf#: [id number] DID#: [id number] CC: ALEXSANDER DUBOSE MD;*EndCC*
[2019-01-07] MEDS ORDERED: VANCOMYCIN IV PER PHARMACY XX SCH
[2019-01-07] MEDS ORDERED: VANCOMYCIN HCL 2 GM in SOD CHLORIDE 0.9% 500 ML IVPB SCH (01:00)
[2019-01-07] MEDS: ALBUTEROL/IPRATROPIUM (NEB) 3 ML AMP HHN SCH ×6 (01:45→20:27)
[2019-01-07] MEDS: ACETAMINOPHEN 325 MG TAB PO PRN (02:20)
[2019-01-07] MEDS: ZOLPIDEM 5 MG TAB PO PRN (02:20)
[2019-01-07 04:03] VITALS: BP 112/51; PULSE 85; RESP 20
[2019-01-07] MEDS: LEVOFLOXACIN 500MG/D5W (PMX) 100 ML IVPB SCH (06:25)
[2019-01-07 07:27] VITALS: BP 156/70; PULSE 73; RESP 18
[2019-01-07] MEDS: ONDANSETRON 4 MG INJ IV PRN (08:32)
[2019-01-07] MEDS ORDERED: AMLODIPINE 2.5 MG TAB PO SCH (09:00)
[2019-01-07] MEDS ORDERED: METOPROLOL (XL) 25 MG TAB PO SCH (09:00)
[2019-01-07] MEDS ORDERED: HYDROCODONE/APAP (10/325) TAB PO ONE (09:30)
[2019-01-07] MEDS: ISOSORBIDE DINITRATE 10 MG TAB PO SCH ×3 (09:46→20:02)
--- NOTE | 2019-01-07 09:46 | RADRPT ---
Echocardiogram Report Patient Name: JOSE GARCIAPatient ID: [id number] : 1945 (73y 1m)Study Date: 01/06/2019 1:25:01 PM Gender: MAccession #: [id number] Tech: Ernesto Mcdonald [facility] Location: [facility] Ref.Physician: TONIE MCCABE Height(Cm): BSA: Weight(Kg): Quality: Technically Difficult StudyOrder Physician: TONIE MCCABE Account #: Procedures: Echocardiographic Report: Transthoracic echocardiogram with complete 2D, M-Mode, and doppler examination. Indications: NSTEMI. Measurements: 2D/M Mode Doppler Measurement Value Normal Range Measurement Value Normal Range LVIDd 2D 4.4 [ 4.2 - 5.8 ] cm AV Peak Martir 0.8 [ 100.0 - 170.0 ] cm/se c LVIDs 2D 2.9 [ 2.5 - 4.0 ] cm AV Peak PG 2.0 [ 2.0 - 9.0 ] mmHg LVPWd 2D 0.9 [ 0.6 - 1.0 ] cm LVOT Peak Martir 0.5 [ 70.0 - 110.0 ] cm/sec IVSd 2D 0.9 [ 0.6 - 1.0 ] cm LVOT Peak PG 1.0 [ 2.0 - 6.0 ] mmHg AoR Diam 2D 2.5 [ 2.6 - 3.4 ] cm MV E Peak Martir 0.6 [ 60.0 - 130.0 ] cm/sec EDV 2D 86.8 [ 62.0 - 150.0 ] ml MV A Peak Martir 0.6 [ 100.0 - 120.0 ] cm/se c ESV 2D 32.2 [ 21.0 - 61.0 ] ml MV E/A 1.1 [ 0.8 - 1.5 ] ratio EF 2D 62.9 [ 52.0 - 72.0 ] percent MV PHT 58.0 [ 20.0 - 100.0 ] msec LA Dimen 2D 3.7 [ 3.0 - 4.0 ] cm MV Decel Time 197 [ 104 - 258 ] msec MV Decel Garland 3 Lat E` Martir 0.1 [ 10.0 - 15.0 ] cm/sec Lateral E/E` 6.3 [ 1.0 - 2.0 ] ratio Med E` Martir 0.1 cm/sec MV E/A 1.1 [ 0.8 - 1.5 ] ratio MVA PHT 3.8 [ 2.0 - 4.0 ] cm2 TR Peak Martir 1.5 [ 100.0 - 280.0 ] cm/se c TR Peak PG 9.0 mmHg Findings: Left Ventricle: Overall, normal left ventricular systolic function. Not all segments visualized. Normal left ventricular cavity size. Left ventricle not well visualized. Normal left ventricular wall thickness. Ejection fraction is visually estimated at 50-55 %. Right Ventricle: Normal right ventricular size. Normal right ventricular systolic function. Left Atrium: The left atrium is normal in size. Right Atrium: Not well visualized. Atrial Septum: Not well visualized. Ventricular septum: Normal/intact ventricular septum. Mitral Valve: Mitral valve is not well visualized. No mitral valve regurgitation is seen. Aortic Valve: Aortic valve not well visualized. Aortic sclerosis without significant stenosis. No aortic regurgitation. Tricuspid Valve: Tricuspid valve not well visualized. Unable to obtain RVSP due to minimal presence of tricuspid regurgitation. There is trace tricuspid regurgitation. Pulmonic Valve: Pulmonic valve not well visualized. No evidence of pulmonic regurgitation. Pericardium: Normal pericardium with no significant pericardial effusion. Aorta: Normal aortic root. IVC: The IVC is not well visualized. Conclusions: Overall, normal left ventricular systolic function. Not all segments visualized. Normal left ventricular cavity size. Left ventricle not well visualized. Normal left ventricular wall thickness. Ejection fraction is visually estimated at 50-55 %. Mitral valve is not well visualized. No mitral valve regurgitation is seen. Aortic valve not well visualized. Aortic sclerosis without significant stenosis. No aortic regurgitation. Tricuspid valve not well visualized. Unable to obtain RVSP due to minimal presence of tricuspid regurgitation. There is trace tricuspid regurgitation. very suboptimal study. Electronically Signed By: Melvin Chacon 2019-01-06 14:43:07 PDT
[2019-01-07] MEDS: TAMSULOSIN (SR) 0.4 MG CAP PO SCH ×2 (09:48→20:03)
--- NOTE | 2019-01-07 10:06 | PN ---
Date/Time of Note Date/Time of Note DATE: 01/07/19 TIME: 10:03 Subjective Remains short of breath. However feeling better overall. No chest pain Objective Vitals Vital Signs Date Temp Pulse Resp B/P (MAP) Pulse Ox O2 O2 Flow FiO2 Time Delivery Rate 01/07/19 98.0 73 18 156/70 98 07:27 (98) 01/07/19 Nasal 4.0 04:56 Cannula 01/07/19 36 01:49 Intake and Output 01/06/19 01/06/19 01/07/19 1515:00 23:00 07:00 IntakeIntake Total 300 ml 460 ml 500 ml BalanceBalance 300 ml 460 ml 500 ml Rales at the bases Regular rate and rhythm no murmurs or gallops Soft nontender nondistended normoactive bowel sounds No edema Nonfocal Results Result Diagram: 01/07/1904 01/07/19 0604 Medications Medications Current Medications Levofloxacin/ Dextrose 100 ml @ 100 mls/hr DAILY@0600 IVPB Last administered on 01/07/19at 06:25; Admin Dose 100 MLS/HR; Start 01/06/19 at 06:00 Albuterol/ Ipratropium (Duoneb) 3 ml Q4 HHN Last administered on 01/07/19 04:53; Admin Dose 3 ML; Start 01/06/19 at 01:00 Zolpidem Tartrate (Ambien) 5 mg HS MAY REPEAT X 1 PRN PO INSOMNIA Last administered on 01/07/19at 02:20; Admin Dose 5 MG; Start 01/05/19 at 23:30 Ondansetron HCl (Zofran Inj) 4 mg Q4 PRN IV nausea Last administered on 01/07/19at 08:32; Admin Dose 4 MG; Start 01/05/19 at 23:30 Isosorbide Dinitrate (Isordil) 10 mg TID PO Last administered on 01/07/19 09:46; Admin Dose 10 MG; Start 01/06/19 at 09:00 Tamsulosin HCl (Flomax) 0.4 mg BID PO Last administered on 01/07/19at 09:48; Admin Dose 0.4 MG; Start 01/06/19 at 09:00 Acetaminophen (Tylenol Tab) 650 mg Q4H PRN PO MILD PAIN(1-3)OR ELEVATED TEMP Last administered on 01/07/19at 02:20; Admin Dose 650 MG; Start 01/06/19 at 05:30 Amlodipine Besylate (Norvasc) 2.5 mg DAILY PO Last administered on 01/07/19at 09:48; Admin Dose 2.5 MG; Start 01/07/19 at 09:00 Metoprolol Succinate (Toprol Xl) 25 mg DAILY PO Last administered on 01/07/19at 09:48; Admin Dose 25 MG; Start 01/07/19 at 09:00 Clopidogrel Bisulfate (plaVIX) 75 mg Q48H PO ; Start 01/08/19 at 09:00 Vancomycin HCl (Vanco Iv Per Pharmacy) VANCOMYCIN PER PHARMACY PER PROTOCOL XX ; Start 01/07/19 at 00:00 Vancomycin HCl 2 gm/Sodium Chloride 500 ml @ 125 mls/hr ONCE IVPB Last administered on 01/07/19at 00:58; Admin Dose 125 MLS/HR; Start 01/07/19 at 01:00; Stop 01/07/19 at 12:00 Vancomycin HCl 1.25 gm/Sodium Chloride 250 ml @ 83.333 mls/ hr Q24H IVPB ; Start 01/08/19 at 01:00 VTE Prophylaxis Risk score (from Nsg)>0 risk: 5 SCD applied (from Nsg): Yes Lines/Catheters IV Catheter Type: Saline Lock Cota in Place: No Assessment/Plan Assessment/Plan 73-year-old male with community acquired pneumonia Acute COPD exacerbation Acute hypoxemic respiratory failure Acute non-STEMI Coronary artery disease, status post CABG Positive blood culture. 1 out of 2 bottles are growing gram-positive cocci in cluster History of lung CA, status post radiation therapy with failure to follow-up at [facility] Continue IV Levaquin and vancomycin Respiratory treatment Check final blood culture results Pulmonary and cardiology follow-up TONIE MCCABE MD Jan 07, 2019 10:06
--- NOTE | 2019-01-07 11:03 | CONS ---
Assessment/Plan Assessment/Plan Hospital Course (Demo Recall) Elevated troponin concerning for myocardial infarction Pneumonia Low normal left ventricular ejection fraction 50 to 55% CAD with history of CABG and multiple PCI's History of lung cancer Intermittent medication compliance Patient denies any chest pain, shortness of breath at the current time Does admit to stopping his aspirin and Plavix for the past 10 days because of bruising. He did also stop his cardiac medications because he felt his blood pressure was low. We DC his amlodipine, increase his beta-sherly to twice daily I recommended continuing aspirin and Plavix as long as he tolerates We will start statin therapy Patient continues to improve, will plan for inpatient ischemic work-up, if patient agreeable. Consultation Date/Type/Reason Admit Date/Time Jan 05, 2019 at 23:34 Initial Consult Date 01/06/19 Type of Consult Cardiology Requesting Provider: TONIE MCCABE MD Date/Time of Note DATE: 01/07/19 TIME: 11:00 24 HR Interval Summary Free Text/Dictation Denies current chest pain, shortness of breath or palpitations. Feeling better but tired Exam/Review of Systems Vital Signs Vitals Vital Signs Date Temp Pulse Resp B/P (MAP) Pulse Ox O2 O2 Flow FiO2 Time Delivery Rate 01/07/19 Nasal 4.0 08:00 Cannula 01/07/19 98.0 73 18 156/70 98 07:27 (98) 01/07/19 36 01:49 Intake and Output 01/06/19 01/06/19 01/07/19 1515:00 23:00 07:00 IntakeIntake Total 300 ml 460 ml 500 ml BalanceBalance 300 ml 460 ml 500 ml Exam Constitutional: alert, oriented (No dyspnea with speaking, no apparent distress) Head: normocephalic Respiratory: other (Coarse breath sounds bilaterally, no wheezing) Cardiovascular: regular rate and rhythm (S1-S2 heard) Gastrointestinal: soft, non-tender, bowel sounds Extremities: other (No significant edema) Labs Result Diagram: 01/07/19 0604 01/07/19 0604 Results 24hrs Laboratory Tests Test 01/06/19 13:01 01/06/19 13:43 01/07/19 06:04 01/07/19 06:05 Troponin I 0.463 *H 0.306 *H Procalcitonin 0.09 White Blood Count 7.4 # Red Blood Count 4.37 L Hemoglobin 12.2 L Hematocrit 41.0 L Mean Corpuscular 93.8 Volume Mean Corpuscular 27.9 L Hemoglobin Mean Corpuscular 29.8 L Hemoglobin Concent Red Cell Distribution 13.6 Width Platelet Count 180 # Mean Platelet Volume 10.9 H Immature Granulocytes 0.500 H % Neutrophils % 68.8 Lymphocytes % 16.5 Monocytes % 11.1 H Eosinophils % 2.4 Basophils % 0.7 Nucleated Red Blood 0.0 Cells % Immature Granulocytes 0.040 H # Neutrophils # 5.1 Lymphocytes # 1.2 Monocytes # 0.8 Eosinophils # 0.2 Basophils # 0.1 Nucleated Red Blood 0.0 Cells # Sodium Level 144 Potassium Level 4.1 Chloride Level 104 Carbon Dioxide Level 35 H Anion Gap 5 Blood Urea Nitrogen 25 H Creatinine 1.13 Est Glomerular Filtrat Rate mL/min Glucose Level 120 Calcium Level 7.9 L Magnesium Level 2.3 Total Bilirubin 0.5 Direct Bilirubin 0.00 Indirect Bilirubin 0.5 Aspartate Amino 44 Transf (AST/SGOT) Alanine 56 Aminotransferase (ALT/ SGPT) Alkaline Phosphatase 66 B-Type Natriuretic 1530 H Peptide Total Protein 6.3 # Albumin 3.2 L Globulin 3.10 Albumin/Globulin Ratio 1.03 Triglycerides Level 82 Cholesterol Level 149 LDL Cholesterol, 96 Calculated HDL Cholesterol 37 Cholesterol/HDL Ratio 4.0 Thyroid Stimulating 0.736 Hormone (TSH) Creatine Kinase 31 Creatine Kinase Index 2.8 Creatinine Kinase MB 0.88 (Mass) Medications Medications Current Medications Levofloxacin/ Dextrose 100 ml @ 100 mls/hr DAILY@0600 IVPB Last administered on 01/07/19at 06:25; Admin Dose 100 MLS/HR; Start 01/06/19 at 06:00 Albuterol/ Ipratropium (Duoneb) 3 ml Q4 HHN Last administered on 01/07/19at 04:53; Admin Dose 3 ML; Start 01/06/19 at 01:00 Zolpidem Tartrate (Ambien) 5 mg HS MAY REPEAT X 1 PRN PO INSOMNIA Last administered on 01/07/19at 02:20; Admin Dose 5 MG; Start 01/05/19 at 23:30 Ondansetron HCl (Zofran Inj) 4 mg Q4 PRN IV nausea Last administered on 01/07/19at 08:32; Admin Dose 4 MG; Start 01/05/19 at 23:30 Isosorbide Dinitrate (Isordil) 10 mg TID PO Last administered on 01/07/19at 09:46; Admin Dose 10 MG; Start 01/06/19 at 09:00 Tamsulosin HCl (Flomax) 0.4 mg BID PO Last administered on 01/07/19 09:48; Admin Dose 0.4 MG; Start 01/06/19 at 09:00 Acetaminophen (Tylenol Tab) 650 mg Q4H PRN PO MILD PAIN(1-3)OR ELEVATED TEMP Last administered on 01/07/19at 02:20; Admin Dose 650 MG; Start 01/06/19 at 05:30 Amlodipine Besylate (Norvasc) 2.5 mg DAILY PO Last administered on 01/07/19at 09:48; Admin Dose 2.5 MG; Start 01/07/19 at 09:00 Metoprolol Succinate (Toprol Xl) 25 mg DAILY PO Last administered on 01/07/19at 09:48; Admin Dose 25 MG; Start 01/07/19 at 09:00 Clopidogrel Bisulfate (plaVIX) 75 mg Q48H PO ; Start 01/08/19 at 09:00 Vancomycin HCl (Vanco Iv Per Pharmacy) VANCOMYCIN PER PHARMACY PER PROTOCOL XX ; Start 01/07/19 at 00:00 Vancomycin HCl 2 gm/Sodium Chloride 500 ml @ 125 mls/hr ONCE IVPB Last administered on 01/07/19at 00:58; Admin Dose 125 MLS/HR; Start 01/07/19 at 01:00; Stop 01/07/19 at 12:00 Vancomycin HCl 1.25 gm/Sodium Chloride 250 ml @ 83.333 mls/ hr Q24H IVPB ; Start 01/08/19 at 01:00 Chris Botello DO Jan 07, 2019 11:03
[2019-01-07 12:13] VITALS: BP 148/73; PULSE 75; RESP 18
[2019-01-07 16:01] VITALS: BP 116/59; PULSE 77; RESP 18
[2019-01-07] MEDS: HYDROCODONE/APAP (10/325) TAB PO PRN (18:39)
[2019-01-07 19:46] VITALS: BP 118/56; PULSE 78; RESP 20
[2019-01-07] MEDS: METOPROLOL (XL) 25 MG TAB PO SCH ×2 (20:02→21:00)
[2019-01-07] MEDS: ATORVASTATIN 80 MG TAB PO SCH (20:02)
[2019-01-07] MEDS ORDERED: NITROGLYCERIN (SL) 0.4 MG TAB SL PRN (21:00)
[2019-01-07] MEDS: CLOPIDOGREL 75 MG TAB PO SCH (21:15)
[2019-01-08] MEDS: VANCOMYCIN HCL 1.5 GM in SOD CHLORIDE 0.9% 250 ML IVPB SCH (00:03)
[2019-01-08] MEDS: ZOLPIDEM 5 MG TAB PO PRN ×2 (00:10→21:47)
[2019-01-08 00:15] VITALS: BP 118/57; PULSE 88; RESP 18
[2019-01-08] MEDS ORDERED: VANCOMYCIN HCL 1.25 GM in SOD CHLORIDE 0.9% 250 ML IVPB SCH (01:00)
[2019-01-08] MEDS: ALBUTEROL/IPRATROPIUM (NEB) 3 ML AMP HHN SCH ×6 (01:00→20:32)
[2019-01-08 04:06] VITALS: BP 150/70; PULSE 91; RESP 18
[2019-01-08] MEDS: ACETAMINOPHEN 325 MG TAB PO PRN ×2 (05:17→21:29)
[2019-01-08] MEDS: LEVOFLOXACIN 500MG/D5W (PMX) 100 ML IVPB SCH (05:17)
[2019-01-08 07:59] VITALS: BP 154/72; PULSE 93; RESP 18
[2019-01-08] MEDS: ISOSORBIDE DINITRATE 10 MG TAB PO SCH ×3 (08:36→20:17)
[2019-01-08] MEDS: TAMSULOSIN (SR) 0.4 MG CAP PO SCH ×2 (08:36→20:14)
[2019-01-08] MEDS: METOPROLOL (XL) 25 MG TAB PO SCH ×2 (08:37→20:14)
[2019-01-08] MEDS: HYDROCODONE/APAP (10/325) TAB PO PRN (08:53)
[2019-01-08] MEDS ORDERED: CLOPIDOGREL 75 MG TAB PO SCH (09:00)
[2019-01-08] MEDS ORDERED: LEVO750T8 PO (09:06)
[2019-01-08] MEDS ORDERED: ATOR-2 PO (09:06)
[2019-01-08] MEDS ORDERED: METO-335 PO (09:06)
[2019-01-08] MEDS ORDERED: IPRA4AER INHALATION (09:07)
--- NOTE | 2019-01-08 09:08 | PDOCDIS ---
Discharge Instructions CONDITION [id number] Patient Condition: [id number] Good HOME CARE INSTRUCTIONS: [id number] Diet Instructions: [id number] FOLLOW UP/APPOINTMENTS Follow-up Plan pcp [address] Botello 1 week TONIE MCCABE MD Jan 08, 2019 09:07
--- NOTE | 2019-01-08 10:07 | DS ---
DATE OF ADMISSION: 01/05/2019 DATE OF DISCHARGE: DISCHARGE DIAGNOSES 1. A 73-year-old male with a community-acquired pneumonia. 2. Acute respiratory distress, significantly improved. 3. Acute non-STEMI. 4. Coronary artery disease status post CABG followed by multiple PCI. 5. History of lung cancer status post radiation therapy. 6. Noncompliance with medical therapy and followup. HOSPITAL COURSE: A 73-year-old male with multiple other medical problems presented to emergency room with complaint of shortness of breath and cough for several days. Initial evaluation revealed evide nce of community-acquired pneumonia. Chest CT showed focal soft pleural opacities within the l eft lung apex and posterior aspect of the right upper lobe, corresponding to irregular spiculated nod ule on prior examination. There was patchy consolidation within the right lung base and to a lesser degree within the left lung base. This was consistent with pneumonia. The patient was treated with IV Levaquin and respiratory treatments. He was noted to have elevated troponins as high as 1.586. The troponins trended down. He was seen i n consultation by cardiology. A 2D echo showed low normal ejection fraction of 50% to 55%. The adriana ent is noncompliant with his Plavix therapy and takes it every other day due to bruising. Dr. Botello recommended a nuclear stress test; however, the patient refused the stress test. He is in a stable condition for discharge. I arranged home oxygen due to evidence of chronic respiratory failure. MEDICATIONS ON DISCHARGE: 1. Combivent 1 puff 4 times daily. 2. Atorvastatin 80 mg at bedtime. 3. Levaquin 750 mg x5 days. 4. Toprol-XL 25 mg b.i.d. 5. Amlodipine 10 mg daily. 6. Plavix 75 mg every other day. 7. Lasix 40 mg daily. 8. Isosorbide 10 mg t.i.d. 9. Potassium chloride 8 mEq b.i.d. 10. Flomax 0.4 mg b.i.d. DISCHARGE INSTRUCTIONS: 1. Follow up with PCP in 1 week. 2. Follow up with cardiology in 1 week. Dictated By: TONIE HUNT/SHANTELLE Conf#: [id number] DID#: [id number] CC: LILLIAN BOTELLO DO;*EndCC*
[2019-01-08 12:11] VITALS: BP 141/66; PULSE 86; RESP 18
[2019-01-08] MEDS: LORAZEPAM 2 MG INJ IV PRN (13:21)
--- NOTE | 2019-01-08 13:59 | CONS ---
Assessment/Plan Assessment/Plan Assessment/Plan (Daily) Assessment Elevated troponin concerning for myocardial infarction Pneumonia Low normal left ventricular ejection fraction 50 to 55% CAD with history of CABG and multiple PCI's History of lung cancer Intermittent medication compliance Plan: informed refusal of further hammond no current ischemic complains dw patient risks of delaying hammond Consultation Date/Type/Reason Admit Date/Time Jan 05, 2019 at 23:34 Initial Consult Date 01/06/19 Type of Consult Cardiology Requesting Provider: TONIE MCCABE MD Date/Time of Note DATE: 01/08/19 TIME: 13:58 24 HR Interval Summary Free Text/Dictation no chest pain, no sob, no palpitations, eating his lunch Detailed Summary Respiratory: no complaints Cardiovascular: no complaints Gastrointestinal: no complaints Musculoskeletal: no complaints Neurologic: no complaints Exam/Review of Systems Vital Signs Vitals Vital Signs Date Temp Pulse Resp B/P (MAP) Pulse Ox O2 O2 Flow FiO2 Time Delivery Rate 01/08/19 82 18 97 Nasal 3.0 12:58 Cannula 01/08/19 98.0 141/66 12:11 (91) 01/07/19 36 01:49 Intake and Output 01/07/19 01/07/19 01/08/19 1515:00 23:00 07:00 IntakeIntake Total 240 ml 420 ml 830 ml OutputOutput Total 600 ml 1200 ml BalanceBalance -360 ml -780 ml 830 ml Exam Constitutional: alert, oriented Neck: supple Respiratory: clear to auscultation Cardiovascular: regular rate and rhythm Gastrointestinal: soft Musculoskeletal: nl extremities to inspection Labs Result Diagram: 01/07/19 0604 01/07/19 0604 Medications Medications Current Medications Albuterol/ Ipratropium (Duoneb) 3 ml Q4 HHN Last administered on 01/08/19at 12:57; Admin Dose 3 ML; Start 01/06/19 at 01:00 Zolpidem Tartrate (Ambien) 5 mg HS MAY REPEAT X 1 PRN PO INSOMNIA Last administered on 01/08/19at 00:10; Admin Dose 5 MG; Start 01/05/19 at 23:30 Ondansetron HCl (Zofran Inj) 4 mg Q4 PRN IV nausea Last administered on 01/07/19at 08:32; Admin Dose 4 MG; Start 01/05/19 at 23:30 Isosorbide Dinitrate (Isordil) 10 mg TID PO Last administered on 01/08/19 13:21; Admin Dose 10 MG; Start 01/06/19 at 09:00 Tamsulosin HCl (Flomax) 0.4 mg BID PO Last administered on 01/08/19at 08:36; Admin Dose 0.4 MG; Start 01/06/19 at 09:00 Acetaminophen (Tylenol Tab) 650 mg Q4H PRN PO MILD PAIN(1-3)OR ELEVATED TEMP Last administered on 01/08/19at 05:17; Admin Dose 650 MG; Start 01/06/19 at 05:30 Vancomycin HCl (Vanco Iv Per Pharmacy) VANCOMYCIN PER PHARMACY PER PROTOCOL XX ; Start 01/07/19 at 00:00 Metoprolol Succinate (Toprol Xl) 25 mg BID PO Last administered on 01/08/19at 08:37; Admin Dose 25 MG; Start 01/07/19 at 21:00 Atorvastatin Calcium (Lipitor) 80 mg HS PO Last administered on 01/07/19at 20:02; Admin Dose 80 MG; Start 01/07/19 at 21:00 Vancomycin HCl 1.5 gm/Sodium Chloride 250 ml @ 83.333 mls/ hr Q24H IVPB Last administered on 01/08/19at 00:03; Admin Dose 83.333 MLS/HR; Start 01/08/19 at 01:00 Acetaminophen/ Hydrocodone Bitart ([place] (10/325)) 1 tab Q4H PRN PO MODERATE PAIN LEVEL 4-6 Last administered on 01/08/19at 08:53; Admin Dose 1 TAB; Start 01/07/19 at 18:30 Clopidogrel Bisulfate (plaVIX) 75 mg Q48H PO Last administered on 01/07/19at 21:15; Admin Dose 75 MG; Start 01/07/19 at 21:00 Nitroglycerin (Nitroglycerin (Sl Tab) 0.4 Mg) 1 tab Q5M PRN SL ANGINA; Start 01/07/19 at 21:00 Levofloxacin (Levaquin) 750 mg DAILY@06 PO ; Start 01/09/19 at 06:00 Lorazepam (Ativan) 1 mg Q6H PRN IV Anxiety Last administered on 01/08/19at 13:21; Admin Dose 1 MG; Start 01/08/19 at 12:30 NITO ZAYAS MD Jan 08, 2019 13:59
[2019-01-08 16:21] VITALS: BP 110/70; PULSE 89; RESP 18
[2019-01-08] MEDS: ATORVASTATIN 80 MG TAB PO SCH (20:13)
[2019-01-08 20:29] VITALS: BP 146/67; PULSE 90; RESP 20
[2019-01-08] MEDS: ONDANSETRON 4 MG INJ IV PRN (21:47)
[2019-01-09 00:02] VITALS: BP 159/80; PULSE 88; RESP 20
[2019-01-09] MEDS: VANCOMYCIN HCL 1.5 GM in SOD CHLORIDE 0.9% 250 ML IVPB SCH (00:26)
[2019-01-09] MEDS: ALBUTEROL/IPRATROPIUM (NEB) 3 ML AMP HHN SCH ×6 (00:32→20:36)
[2019-01-09] MEDS: HYDROCODONE/APAP (10/325) TAB PO PRN ×3 (01:02→20:20)
[2019-01-09 04:10] VITALS: BP 148/72; PULSE 85; RESP 18
[2019-01-09] MEDS: LEVOFLOXACIN 750 MG TABLET PO SCH (06:17)
[2019-01-09 07:21] VITALS: BP 150/68; PULSE 80; RESP 18
[2019-01-09] MEDS: TAMSULOSIN (SR) 0.4 MG CAP PO SCH ×2 (08:30→20:18)
[2019-01-09] MEDS: METOPROLOL (XL) 25 MG TAB PO SCH (08:31)
[2019-01-09] MEDS: ISOSORBIDE DINITRATE 10 MG TAB PO SCH ×3 (08:31→20:19)
[2019-01-09] MEDS: ONDANSETRON 4 MG INJ IV PRN (09:18)
--- NOTE | 2019-01-09 09:24 | PN ---
Date/Time of Note Date/Time of Note DATE: 01/09/19 TIME: 09:22 Subjective Feels better. Less short of breath. No chest pain. Objective Vitals Vital Signs Date Temp Pulse Resp B/P (MAP) Pulse Ox O2 O2 Flow FiO2 Time Delivery Rate 01/09/19 98.5 80 18 150/68 92 Nasal 2.0 07:21 (95) Cannula 01/07/19 36 01:49 Intake and Output 01/08/19 01/08/19 01/09/19 1414:59 22:59 06:59 IntakeIntake Total 360 ml 1110 ml 750 ml OutputOutput Total 400 ml 360 ml BalanceBalance -40 ml 750 ml 750 ml Bilateral rhonchi Regular rate and rhythm no murmurs or gallops Soft nontender nondistended normoactive bowel sounds No edema Nonfocal Results Result Diagram: 01/07/19 0604 01/09/19 0556 Medications Medications Current Medications Albuterol/ Ipratropium (Duoneb) 3 ml Q4 HHN Last administered on 01/09/19at 05:26; Admin Dose 3 ML; Start 01/06/19 at 01:00 Zolpidem Tartrate (Ambien) 5 mg HS MAY REPEAT X 1 PRN PO INSOMNIA Last administered on 01/08/19 21:47; Admin Dose 5 MG; Start 01/05/19 at 23:30 Ondansetron HCl (Zofran Inj) 4 mg Q4 PRN IV nausea Last administered on 01/09/19 09:18; Admin Dose 4 MG; Start 01/05/19 at 23:30 Isosorbide Dinitrate (Isordil) 10 mg TID PO Last administered on 01/09/19at 08:31; Admin Dose 10 MG; Start 01/06/19 at 09:00 Tamsulosin HCl (Flomax) 0.4 mg BID PO Last administered on 01/09/19 08:30; Admin Dose 0.4 MG; Start 01/06/19 at 09:00 Acetaminophen (Tylenol Tab) 650 mg Q4H PRN PO MILD PAIN(1-3)OR ELEVATED TEMP Last administered on 01/08/19 21:29; Admin Dose 650 MG; Start 01/06/19 at 05:30 Vancomycin HCl (Vanco Iv Per Pharmacy) VANCOMYCIN PER PHARMACY PER PROTOCOL XX ; Start 01/07/19 at 00:00 Metoprolol Succinate (Toprol Xl) 25 mg BID PO Last administered on 01/09/19at 08:31; Admin Dose 25 MG; Start 01/07/19 at 21:00 Atorvastatin Calcium (Lipitor) 80 mg HS PO Last administered on 01/08/19at 20:13; Admin Dose 80 MG; Start 01/07/19 at 21:00 Vancomycin HCl 1.5 gm/Sodium Chloride 250 ml @ 83.333 mls/ hr Q24H IVPB Last administered on 01/09/19at 00:26; Admin Dose 83.333 MLS/HR; Start 01/08/19 at 01:00 Acetaminophen/ Hydrocodone Bitart ([place] (10/325)) 1 tab Q4H PRN PO MODERATE PAIN LEVEL 4-6 Last administered on 01/09/19at 01:02; Admin Dose 1 TAB; Start 01/07/19 at 18:30 Clopidogrel Bisulfate (plaVIX) 75 mg Q48H PO Last administered on 01/07/19at 21:15; Admin Dose 75 MG; Start 01/07/19 at 21:00 Nitroglycerin (Nitroglycerin (Sl Tab) 0.4 Mg) 1 tab Q5M PRN SL ANGINA; Start 01/07/19 at 21:00 Levofloxacin (Levaquin) 750 mg DAILY@06 PO Last administered on 01/09/19at 06:17; Admin Dose 750 MG; Start 01/09/19 at 06:00 Lorazepam (Ativan) 1 mg Q6H PRN IV Anxiety Last administered on 01/08/19 13:21; Admin Dose 1 MG; Start 01/08/19 at 12:30 VTE Prophylaxis Risk score (from Nsg)>0 risk: 8 SCD applied (from Nsg): Yes Lines/Catheters IV Catheter Type: Saline Lock Cota in Place: No Assessment/Plan Assessment/Plan Community-acquired pneumonia, clinically improved Acute hypoxemic respiratory failure, improved History of lung CA, status post radiation therapy Coronary artery disease, status post CABG and PCI COPD Patient is in a stable condition for discharge on home O2 Continue Levaquin times additional 5 days He refused stress test and further cardiac work-up TONIE MCCABE MD Jan 09, 2019 09:24
[2019-01-09 10:56] VITALS: BP 158/70; PULSE 88; RESP 18
--- NOTE | 2019-01-09 13:40 | CONS ---
Assessment/Plan Assessment/Plan Hospital Course (Demo Recall) Elevated troponin concerning for myocardial infarction Pneumonia Low normal left ventricular ejection fraction 50 to 55% CAD with history of CABG and multiple PCI's, most recently at [facility] History of lung cancer Brief atrial fibrillation Intermittent medication compliance Discussed with patient again today, he is refusing stress test Patient also with brief episode of atrial fibrillation on telemetry lasting a few seconds. I will increase dose of beta-sherly. I did discuss with the francisco watts the increased risk of CVA, given his risk factors, would consider anticoagulation. He is not agreeable to current time I did recommend daily Plavix which he is again refusing Continue statin therapy Consultation Date/Type/Reason Admit Date/Time Jan 05, 2019 at 23:34 Initial Consult Date 01/06/19 Type of Consult Cardiology Requesting Provider: TONIE MCCABE MD Date/Time of Note DATE: 01/09/19 TIME: 13:37 24 HR Interval Summary Free Text/Dictation Denies chest pain, still having intermittent shortness of breath and cough Exam/Review of Systems Vital Signs Vitals Vital Signs Date Temp Pulse Resp B/P (MAP) Pulse Ox O2 O2 Flow FiO2 Time Delivery Rate 01/09/19 88 20 93 Nasal 3.0 13:12 Cannula 01/09/19 98.7 158/70 10:56 (99) 01/07/19 36 01:49 Intake and Output 01/08/19 01/08/19 01/09/19 1515:00 23:00 07:00 IntakeIntake Total 360 ml 1110 ml 750 ml OutputOutput Total 400 ml 360 ml BalanceBalance -40 ml 750 ml 750 ml Exam Constitutional: alert, oriented (No apparent distress) Head: normocephalic Respiratory: other (Coarse breath sounds bilaterally, mild scattered rhonchi) Cardiovascular: regular rate and rhythm (S1-S2 heard) Gastrointestinal: soft, non-tender, bowel sounds Extremities: other (No significant edema) Labs Result Diagram: 01/07/19 0604 01/09/19 0556 Results 24hrs Laboratory Tests Test 01/09/19 05:56 01/09/19 12:30 Blood Urea Nitrogen 17 Creatinine 0.99 Blood Gas Specimen Source Blood arterial Arterial Blood Date Drawn 01/09/2019 12:40:36 PM Arterial Blood pH (Temp corrected) 7.401 Arterial Blood pCO2 (Temp correct) 58.9 H Arterial Blood pO2 (Temp corrected) 41.6 *L Arterial Blood HCO3 35.7 H Arterial Blood Base Excess 8.9 H Arterial Blood Oxygen Saturation 78.8 L Levon Test ACCEPTAB Arterial Blood Gas Puncture Site Left Radial Arterial Blood Carboxyhemoglobin 1.0 Arterial Blood Methemoglobin 0.4 Blood Gas A-a O2 Differential 37.6 H Oxyhemoglobin Percent 77.7 L Blood Gas Temperature 37.0 Blood Gas Modality ROOM AIR FiO2 21.0 Blood Gas Critical Value Read Back AI HUERTA Blood Gas Notified Whom TM Blood Gas Notified Time 01/09/2019 12:49:48 PM Medications Medications Current Medications Albuterol/ Ipratropium (Duoneb) 3 ml Q4 HHN Last administered on 01/09/19 13:10; Admin Dose 3 ML; Start 01/06/19 at 01:00 Zolpidem Tartrate (Ambien) 5 mg HS MAY REPEAT X 1 PRN PO INSOMNIA Last administered on 01/08/19 21:47; Admin Dose 5 MG; Start 01/05/19 at 23:30 Ondansetron HCl (Zofran Inj) 4 mg Q4 PRN IV nausea Last administered on 01/09/19 09:18; Admin Dose 4 MG; Start 01/05/19 at 23:30 Isosorbide Dinitrate (Isordil) 10 mg TID PO Last administered on 01/09/19 08:31; Admin Dose 10 MG; Start 01/06/19 at 09:00 Tamsulosin HCl (Flomax) 0.4 mg BID PO Last administered on 01/09/19 08:30; Admin Dose 0.4 MG; Start 01/06/19 at 09:00 Acetaminophen (Tylenol Tab) 650 mg Q4H PRN PO MILD PAIN(1-3)OR ELEVATED TEMP Last administered on 01/08/19 21:29; Admin Dose 650 MG; Start 01/06/19 at 05:30 Vancomycin HCl (Vanco Iv Per Pharmacy) VANCOMYCIN PER PHARMACY PER PROTOCOL XX ; Start 01/07/19 at 00:00 Metoprolol Succinate (Toprol Xl) 25 mg BID PO Last administered on 01/09/19 08:31; Admin Dose 25 MG; Start 01/07/19 at 21:00 Atorvastatin Calcium (Lipitor) 80 mg HS PO Last administered on 01/08/19 20:13; Admin Dose 80 MG; Start 01/07/19 at 21:00 Vancomycin HCl 1.5 gm/Sodium Chloride 250 ml @ 83.333 mls/ hr Q24H IVPB Last administered on 01/09/19at 00:26; Admin Dose 83.333 MLS/HR; Start 01/08/19 at 01:00 Acetaminophen/ Hydrocodone Bitart ([place] (10/325)) 1 tab Q4H PRN PO MODERATE PAIN LEVEL 4-6 Last administered on 01/09/19 09:50; Admin Dose 1 TAB; Start 01/07/19 at 18:30 Clopidogrel Bisulfate (plaVIX) 75 mg Q48H PO Last administered on 01/07/19 21:15; Admin Dose 75 MG; Start 01/07/19 at 21:00 Nitroglycerin (Nitroglycerin (Sl Tab) 0.4 Mg) 1 tab Q5M PRN SL ANGINA; Start 01/07/19 at 21:00 Levofloxacin (Levaquin) 750 mg DAILY@06 PO Last administered on 01/09/19 06:17; Admin Dose 750 MG; Start 01/09/19 at 06:00 Lorazepam (Ativan) 1 mg Q6H PRN IV Anxiety Last administered on 01/08/19 13:21; Admin Dose 1 MG; Start 01/08/19 at 12:30 Chris Botello DO Jan 09, 2019 13:40
[2019-01-09] MEDS: LORAZEPAM 2 MG INJ IV PRN (13:56)
[2019-01-09 15:26] VITALS: BP 121/59; PULSE 86; RESP 17
--- NOTE | 2019-01-09 15:43 | RADRPT ---
Vent Rate: 82 bpm RR Interval: 732 msec [place] Interval: 167 msec QRS Duration: 91 msec QT Interval: 361 msec QTC Interval: 422 msec P-R-T [place]: 33 - 15 - 187 degrees Sinus rhythm...normal P axis, V-rate 50- 99 Probable LVH with secondary repol abnrm...multiple LVH criteria Abnormal T, probable ischemia, lateral leads...T <-0.50mV, I aVL V5 V6 Electronically Signed By: Chris Botello
[2019-01-09] MEDS: CLOPIDOGREL 75 MG TAB PO SCH (20:18)
[2019-01-09 20:19] VITALS: BP 143/75; PULSE 81; RESP 20
[2019-01-09] MEDS: ATORVASTATIN 80 MG TAB PO SCH (20:19)
[2019-01-09] MEDS: METOPROLOL (XL) 50 MG TAB PO SCH (20:20)
[2019-01-10] MEDS: LORAZEPAM 2 MG INJ IV PRN (00:22)
[2019-01-10 00:27] VITALS: BP 151/75; PULSE 79; RESP 20
[2019-01-10] MEDS: ALBUTEROL/IPRATROPIUM (NEB) 3 ML AMP HHN SCH ×4 (01:29→14:15)
[2019-01-10] MEDS: VANCOMYCIN HCL 1.5 GM in SOD CHLORIDE 0.9% 250 ML IVPB SCH (01:46)
[2019-01-10 04:10] VITALS: BP 148/72; PULSE 78; RESP 20
[2019-01-10] MEDS: LEVOFLOXACIN 750 MG TABLET PO SCH (05:38)
[2019-01-10] MEDS: HYDROCODONE/APAP (10/325) TAB PO PRN ×2 (06:59→17:28)
[2019-01-10 07:21] VITALS: BP 155/72; PULSE 90; RESP 19
[2019-01-10] MEDS: ONDANSETRON 4 MG INJ IV PRN (07:32)
[2019-01-10] MEDS: ISOSORBIDE DINITRATE 10 MG TAB PO SCH ×2 (08:22→13:12)
[2019-01-10] MEDS: METOPROLOL (XL) 50 MG TAB PO SCH (08:22)
[2019-01-10] MEDS: TAMSULOSIN (SR) 0.4 MG CAP PO SCH (08:22)
[2019-01-10 11:06] VITALS: BP 143/69; PULSE 71; RESP 19
[2019-01-10] MEDS ORDERED: VANCOMYCIN HCL 1.25 GM in SOD CHLORIDE 0.9% 250 ML IVPB SCH (13:00)
[2019-01-10] MEDS ORDERED: VANCOMYCIN 1 GM 250 ML IVPB SCH (14:00)
--- NOTE | 2019-01-10 14:05 | CONS ---
Assessment/Plan Assessment/Plan Hospital Course (Demo Recall) Elevated troponin concerning for myocardial infarction Pneumonia Low normal left ventricular ejection fraction 50 to 55% CAD with history of CABG and multiple PCI's, most recently at [facility] History of lung cancer Brief atrial fibrillation Intermittent medication compliance Please refer to my previous notes discussing recommendations for stress test, anticoagulation and antiplatelet therapy Continue statin therapy Consultation Date/Type/Reason Admit Date/Time Jan 05, 2019 at 23:34 Initial Consult Date 01/06/19 Type of Consult Cardiology Requesting Provider: TONIE MCCABE MD Date/Time of Note DATE: 01/10/19 TIME: 14:03 24 HR Interval Summary Free Text/Dictation Intermittent shortness of breath but feels better, still with cough which is productive, no chest pain Exam/Review of Systems Vital Signs Vitals Vital Signs Date Temp Pulse Resp B/P (MAP) Pulse Ox O2 O2 Flow FiO2 Time Delivery Rate 01/10/19 98.4 71 19 143/69 96 Nasal 3.0 11:06 (93) Cannula 01/09/19 28 16:42 Intake and Output 01/09/19 01/09/19 01/10/19 1515:00 23:00 07:00 IntakeIntake Total 1650 ml 820 ml OutputOutput Total 500 ml 400 ml 800 ml BalanceBalance -500 ml 1250 ml 20 ml Exam Constitutional: alert, oriented (No apparent distress) Head: normocephalic Respiratory: other (Coarse breath sounds bilaterally, no wheezing) Cardiovascular: regular rate and rhythm (S1-S2 heard) Gastrointestinal: soft, non-tender, bowel sounds Extremities: other (No significant edema) Labs Result Diagram: 01/07/19 0604 01/09/19 0556 Results 24hrs Laboratory Tests Test 01/10/19 00:45 Vancomycin Level Trough 7.9 L Medications Medications Current Medications Albuterol/ Ipratropium (Duoneb) 3 ml Q4 HHN Last administered on 01/10/19at 08:30; Admin Dose 3 ML; Start 01/06/19 at 01:00 Zolpidem Tartrate (Ambien) 5 mg HS MAY REPEAT X 1 PRN PO INSOMNIA Last administered on 01/08/19at 21:47; Admin Dose 5 MG; Start 01/05/19 at 23:30 Ondansetron HCl (Zofran Inj) 4 mg Q4 PRN IV nausea Last administered on 01/10/19 07:32; Admin Dose 4 MG; Start 01/05/19 at 23:30 Isosorbide Dinitrate (Isordil) 10 mg TID PO Last administered on 01/10/19 13:12; Admin Dose 10 MG; Start 01/06/19 at 09:00 Tamsulosin HCl (Flomax) 0.4 mg BID PO Last administered on 01/10/19 08:22; Admin Dose 0.4 MG; Start 01/06/19 at 09:00 Acetaminophen (Tylenol Tab) 650 mg Q4H PRN PO MILD PAIN(1-3)OR ELEVATED TEMP Last administered on 01/08/19 21:29; Admin Dose 650 MG; Start 01/06/19 at 05:30 Vancomycin HCl (Vanco Iv Per Pharmacy) VANCOMYCIN PER PHARMACY PER PROTOCOL XX ; Start 01/07/19 at 00:00 Atorvastatin Calcium (Lipitor) 80 mg HS PO Last administered on 01/09/19 20:19; Admin Dose 80 MG; Start 01/07/19 at 21:00 Acetaminophen/ Hydrocodone Bitart ([place] (10/325)) 1 tab Q4H PRN PO MODERATE PAIN LEVEL 4-6 Last administered on 01/10/19 06:59; Admin Dose 1 TAB; Start 01/07/19 at 18:30 Clopidogrel Bisulfate (plaVIX) 75 mg Q48H PO Last administered on 01/09/19 20:18; Admin Dose 75 MG; Start 01/07/19 at 21:00 Nitroglycerin (Nitroglycerin (Sl Tab) 0.4 Mg) 1 tab Q5M PRN SL ANGINA; Start 01/07/19 at 21:00 Levofloxacin (Levaquin) 750 mg DAILY@06 PO Last administered on 01/10/19 05:38; Admin Dose 750 MG; Start 01/09/19 at 06:00 Lorazepam (Ativan) 1 mg Q6H PRN IV Anxiety Last administered on 01/10/19 00:22; Admin Dose 1 MG; Start 01/08/19 at 12:30 Metoprolol Succinate (Toprol Xl) 50 mg BID PO Last administered on 01/10/19 08:22; Admin Dose 50 MG; Start 01/09/19 at 21:00 Vancomycin HCl 250 ml @ 125 mls/hr Q12H IVPB ; Start 01/10/19 at 14:00 Miscellaneous Information (*Rx Drug Level Order Reminder*) VANCO TROUGH @ 0,100 ON... 0100 ONCE XX ; Start 01/12/19 at 01:00; Stop 01/12/19 at 01:01 Chris Botello DO Jan 10, 2019 14:05
[2019-01-10 16:07] VITALS: BP 146/70; PULSE 80; RESP 18
[2019-01-11] MEDS ORDERED: ROSU10TA26 ORAL (09:52)
[2019-01-11] MEDS ORDERED: METO-429 ORAL (09:52)
[2019-01-11] MEDS ORDERED: CLON1TAB13 PO (09:52)
== END 2019-01-10 18:11 | disposition home health service (06) | DRG 280 ==
LOC: E/R 21:37 → TEL 23:34
PROVIDERS: ADMIT Internal Medicine; ATTEND Internal Medicine
PROC: 4A033R1 Measurement of Arterial Saturation, Peripheral, Percutaneous Approach (ICD-10-PCS; principal; 2019-01-05)
DX: I21.4 Non-ST elevation (NSTEMI) myocardial infarction (principal); J18.9 Pneumonia, unspecified organism; J96.01 Acute respiratory failure with hypoxia; J44.1 Chronic obstructive pulmonary disease with (acute) exacerbation; I13.0 Hypertensive heart and chronic kidney disease with heart failure and stage 1 through stage 4 chronic kidney disease, or unspecified chronic kidney disease; I50.9 Heart failure, unspecified; N40.0 Benign prostatic hyperplasia without lower urinary tract symptoms; N18.3 Chronic kidney disease, stage 3 (moderate); Z85.118 Personal history of other malignant neoplasm of bronchus and lung; Z92.3 Personal history of irradiation; Z88.0 Allergy status to penicillin; Z95.1 Presence of aortocoronary bypass graft; Z95.5 Presence of coronary angioplasty implant and graft; Z79.02 Long term (current) use of antithrombotics/antiplatelets; Z91.19 Patient's noncompliance with other medical treatment and regimen
CPT/HCPCS: 36415; 36600; 71045; 71250; 80053; 80061; 80202; 82550; 82553; 82565; 82803; 83605; 83735; 83880; 84145; 84439; 84443; 84484; 84520; 85025; 85610; 85730; 93005; 93306; 94640; 94664; 96374; 96375; J0456; J0696; J1956; J2060; J2405; J3370; J7030; J7040; J7050

== ENCOUNTER 2019-01-11 06:43 | Observation (INO) | payer MEDICARE, OTHER ==
[~2019-01-11] VITALS: Ht 172.7 cm; Wt 90.0 kg
[~2019-01-11 06:43] MED LIST changes: +ATOR-2 PO; +IPRA4AER INHALATION; +LEVO750T8 PO; +METO-335 PO
[2019-01-11] MEDS ORDERED: IPRATROPIUM (NEB) 0.5 MG/2.5 ML AMP INH STA (06:50)
[2019-01-11] MEDS ORDERED: ASPIRIN 81 MG TAB PO STA (06:50)
[2019-01-11] MEDS ORDERED: ALBUTEROL 0.5% (NEB) 2.5 MG/0.5 ML AMP INH STA (06:50)
[2019-01-11] MEDS ORDERED: FUROSEMIDE 40 MG INJ IV ONE (07:00)
[2019-01-11] MEDS ORDERED: NITROGLYCERIN 2% 1 GM OINT PKT TD ONE (07:00)
[2019-01-11 07:11] VITALS: Ht 172.7 cm; Wt 90.0 kg
--- NOTE | 2019-01-11 07:47 | ERD ---
ER Documentation Chief Complaint Chief Complaint sob and CP x 1 hour HPI This is a 73-year-old gentleman who had recent hospitalization for possible pneumonia. The patient was just discharged yesterday. He presents with sudden shortness of breath and chest pain starting over the past 1 hour. The patient arrives in respiratory distress speaking in short sentences with increased work of breathing. His blood pressure is elevated. He has a known history of coronary disease and CABG. Patient denies any persistent cough, no fever since discharge. He is having difficulty characterizing the pain only stating "I feel like I am dying ". ROS Limited given critical illness Medications Home Meds Active Scripts Metoprolol Succinate* (Toprol XL*) 25 Mg Tab.sr.24h, 25 MG PO BID for 30 Days, 3 Refills Prov:TONIE MCCABE MD 01/08/19 Reported Medications Clonazepam* (Clonazepam*) 1 Mg Tablet, 1 MG PO BID WITH MEALS PRN for ANXIETY, TAB 01/11/19 Rosuvastatin Calcium (Rosuvastatin Calcium) 10 Mg Tablet, 1 TAB ORAL QHS 01/11/19 Metoprolol Tartrate* (Lopressor*) 50 Mg Tab, 1 TAB ORAL BID 01/11/19 Potassium Chloride* (Klor-Con*) 8 Meq Tablet.sa, 8 MEQ PO BID, TAB 10/09/18 Amlodipine Besylate* (Amlodipine Besylate*) 10 Mg Tablet, 10 MG PO DAILY, #30 TAB 10/09/18 Isosorbide Dinitrate* (Isosorbide Dinitrate*) 10 Mg Tablet, 10 MG PO TID, TAB 10/09/18 Tamsulosin Hcl* (Tamsulosin Hcl*) 0.4 Mg Cap.er.24h, 0.4 MG PO BID, CAP 04/25/18 Furosemide* (Furosemide*) 40 Mg Tablet, 40 MG PO DAILY, TAB 04/25/18 Clopidogrel Bisulfate* (Clopidogrel Bisulfate*) 75 Mg Tablet, 75 MG PO every 2 days, #30 TAB 04/25/18 Discontinued Scripts Albuterol/Ipratropium* (Combivent Respimat*) 20-100 Mcg/Inh - 4 Gm Aer.w.adap, 1 PUFF INHALATION QID, #1 INHALER Prov:TONIE MCCABE MD 01/08/19 Levofloxacin* (Levofloxacin*) 750 Mg Tablet, 750 MG PO DAILY for 5 Days, TAB Prov:TONIE MCCABE MD 01/08/19 Atorvastatin* (Atorvastatin*) 80 Mg Tablet, 80 MG PO HS for 30 Days, TAB 3 Refills Prov:TONIE MCCABE MD 01/08/19 Allergies Allergies: Coded Allergies: Penicillins (Verified Allergy, Unknown, 01/11/19) meperidine HCl (Verified Allergy, Unknown, 01/11/19) morphine (Verified Allergy, Unknown, 01/11/19) PMhx/Soc History of Surgery: Yes (CABG, cardiac stent) Anesthesia Reaction: No Hx Neurological Disorder: No Hx Respiratory Disorders: Yes (lung CA, COPD) Hx Cardiac Disorders: Yes (HTN, CABG, cardiac stent, CHF, hyperlipidemia) Hx Psychiatric Problems: No Hx Miscellaneous Medical Probl: No Hx Alcohol Use: No Hx Substance Use: No Hx Tobacco Use: No Smoking Status: Current every day smoker FmHx Family History: No diabetes Physical Exam Vitals Vital Signs Date Temp Pulse Resp B/P (MAP) Pulse Ox O2 O2 Flow FiO2 Time Delivery Rate 01/11/19 98.0 81 20 134/70 95 Nasal 4.0 09:47 (91) Cannula 01/11/19 92 2.0 09:44 01/11/19 65 100 40 07:46 01/11/19 98.2 66 20 142/74 100 BIPAP 07:32 (96) 01/11/19 98.2 71 26 153/85 89 07:11 (107) 01/11/19 78 100 100 06:50 Physical Exam General: speaking in short sentences, Head: Normocephalic, atraumatic. Eyes: Pupils equally reactive, EOM intact ENT: Moist mucous membranes Neck: Supple, no lymphadenopathy Respiratory: Increased work of breathing, respiratory distress, rales at the bases bilaterally Cardiovascular: RRR, no murmurs, rubs, or gallops Abdominal: Soft, non-tender, non-distended, no peritoneal signs : Deferred MSK: No edema, no unilateral swelling, 5/5 strength Neurologic: Alert and oriented, moving all extremities, normal speech, no focal weakness, no cerebellar signs Skin: No rash Psych: Normal mood Result Diagram: 01/11/1959 01/11/1959 Results 24 hrs Laboratory Tests Test 01/11/19 06:50 01/11/19 06:59 01/11/19 10:30 Blood Gas Specimen Blood arterial Blood arterial Source Arterial Blood Date 01/11/2019 7:40:41 AM 01/11/2019 10:27:45 AM Drawn Arterial Blood pH 7.237 7.318 (Temp corrected) Arterial Blood pCO2 88.1 mmhg 82.7 mmhg (Temp correct) Arterial Blood pO2 442.6 mmHG 71.5 mmHG (Temp corrected) Arterial Blood HCO3 36.7 mmol/L 41.5 mmol/L Arterial Blood Base 5.8 mmol/L 11.5 mmol/L Excess Arterial Blood 99.8 mmHG 93.1 mmHG Oxygen Saturation Levon Test ACCEPTAB ACCEPTAB Arterial Blood Gas Right Radial Left Radial Puncture Site Arterial 0.9 % 0.8 % Blood Carboxyhemoglob in Arterial Blood 0.4 % 0.3 % Methemoglobin Blood Gas A-a O2 182.3 mmHg 30.6 mmHg Differential Oxyhemoglobin Percent 98.5 % 92.1 % Blood Gas Temperature 37.0 C 37.0 C Blood Gas Respiration 18.0 Rate Blood Gas Actual 19 Respiration Rate Blood Gas Modality MASK - BIPAP NASAL CANNULA FiO2 100.0 % 28.0 % Blood Gas Pressure 10 Support Blood Gas Critical DR KATALINA DARDEN Value Read Back Blood Gas Notified RODNEY Rodriguez Whom Blood Gas Notified 01/11/2019 7:56:47 AM 01/11/2019 10:39:49 AM Time White Blood Count 10.6 10^3/ul Red Blood Count 4.91 10^6/ul Hemoglobin 13.9 g/dl Hematocrit 45.3 % Mean Corpuscular 92.3 fl Volume Mean Corpuscular 28.3 pg Hemoglobin Mean Corpuscular 30.7 g/dl Hemoglobin Concent Red Cell Distribution 13.4 % Width Platelet Count 235 10^3/UL Mean Platelet Volume 10.8 fl Immature Granulocytes 0.300 % % Neutrophils % 79.5 % Lymphocytes % 12.8 % Monocytes % 4.7 % Eosinophils % 2.1 % Basophils % 0.6 % Nucleated Red Blood 0.0 /100WBC Cells % Immature Granulocytes 0.030 10^3/ul # Neutrophils # 8.4 10^3/ul Lymphocytes # 1.4 10^3/ul Monocytes # 0.5 10^3/ul Eosinophils # 0.2 10^3/ul Basophils # 0.1 10^3/ul Nucleated Red Blood 0.0 10^3/ul Cells # Prothrombin Time 13.1 Sec Prothrombin Time 1.0 Ratio INR International 0.98 Normalized Ratio Activated 37.9 Sec Partial Thromboplast Time Sodium Level 142 mmol/L Potassium Level 4.9 mmol/L Chloride Level 96 mmol/L Carbon Dioxide Level 38 mmol/L Anion Gap 8 Blood Urea Nitrogen 19 mg/dl Creatinine 1.03 mg/dl Est Glomerular mL/min Filtrat Rate mL/min Glucose Level 164 mg/dl Calcium Level 8.8 mg/dl Total Bilirubin 0.7 mg/dl Direct Bilirubin 0.00 mg/dl Indirect Bilirubin 0.7 mg/dl Aspartate Amino 74 IU/L Transf (AST/SGOT) Alanine 59 IU/L Aminotransferase (ALT /SGPT) Alkaline Phosphatase 99 IU/L Troponin I 0.098 ng/ml B-Type Natriuretic 2600 PG/ML Peptide Total Protein 7.6 g/dl Albumin 3.9 g/dl Globulin 3.70 g/dl Albumin/Globulin 1.05 Ratio Current Medications Medications Dose Sig/Chantelle Start Time Status Last (Trade) Ordered Route PRN Stop Time Admin Dose Reason Admin Aspirin 162 mg ONCE STAT 01/11/19 DC 01/11/19 (Aspirin) PO 06:50 01/11/19 07:04 06:52 Albuterol 15 mg ONCE STAT 01/11/19 DC 01/11/19 (Proventil INH 06:50 01/11/19 07:50 0.5% (Neb)) 06:52 Ipratropium 2 mg ONCE STAT 01/11/19 DC 01/11/19 [place] INH 06:50 01/11/19 07:50 (Atrovent 06:52 0.02% (Neb)) Furosemide 60 mg ONCE ONCE 01/11/19 DC 01/11/19 (Lasix) IV 07:00 01/11/19 07:04 07:01 1 inch ONCE ONCE 01/11/19 DC 01/11/19 Nitroglycerin TD 07:00 01/11/19 07:04 07:01 (Nitroglyceri n 2% Oint) Procedures/MDM EKG, MONITORS, & DIAGNOSTIC IMAGING: EKG: I reviewed and interpreted a 12-lead EKG. Rhythm: Normal sinus rhythm ST Changes: No contiguous ST segment elevations T waves: T wave inversions in the precordial leads Impression: [No evidence of acute cardiac ischemia] Repeat EKG EKG: I reviewed and interpreted a 12-lead EKG. Rhythm: Normal sinus rhythm ST Changes: No contiguous ST segment elevations T waves: T wave inversions in the precordial leads Impression: [No evidence of acute cardiac ischemia] Chest x-ray: I reviewed and interpreted a 1 view of the chest Mediastinum: No enlargement Cardiac silhouette:cardiomegaly Airspace: interstitial process bilaterally consistent with pulmonary edema Bones: No evidence of fracture LAB INTERPRETATION: I reviewed the laboratory testing and it shows no evidence of infectious process or cardiac ischemia, elevated BNP MEDICAL DECISION MAKING: Patient arrives with sudden onset shortness of breath elevated blood pressure, rales at the bases bilaterally and increased work of breathing. Clinical exam and history is possibly consistent with flash pulmonary edema. The patient is in respiratory distress requiring positive pressure ventilation. Patient r equires preload and afterload reduction. He does have a history of CABG. Most recent echo did not show overt systolic heart failure. No signs or symptoms concerning for pulmonary embolism. The patient does not describe pleuritic pain. Chest x-ray is consistent with pulmonary edema which would be atypical for this process. Patient was recently diagnosed with pneumonia but he has no fever no significant cough no white count therefore I am not convinced this is consistent with pneumonia. ER COURSE: * Patient was started on positive pressure ventilation with a dramatic improvement of his symptoms. The patient was given Lasix, nitroglycerin. Aspirin. * Patient is improving and does not require nitroglycerin drip. The patient does not require intubation. * Continue to monitor and treat the patient with preload and afterload reduction. Inpatient hospitalization is absolutely necessary. * Again, infectious process does not seem to be present. * Patient does have a history of remote lung cancer and would benefit from further work-up on an inpatient basis. * The patient has improved dramatically and is now off of positive pressure ventilation. He is stable for telemetry admission * Patient's repeat blood gas prompted repeat positive pressure ventilation. He continues to be well-appearing however. CONSULTATION: [None] DISPOSITION PLAN: Telemetry admission Accepting care team and consultations: I discussed the current laboratory data, diagnostic imaging and emergency care provided. Admitting team: [facility] Admitting team indication: Insurance directed Critical Care Note: Total time: 42 minutes Indication/Organ System Threat: Acute respiratory failure I spent the above amount of critical care time with the patient, not including billable procedures. This included chart review, consultations, repeat bedside evaluations, and titration of appropriate medications to prevent cardiopulmonary or respiratory collapse. Departure Diagnosis: Primary Impression: Acute hypoxemic respiratory failure Additional Impressions: Acute pulmonary edema Hypertensive emergency History of lung cancer Condition: FLORIDA Juarez MD Jan 11, 2019 07:47
[2019-01-11] MEDS ORDERED: METO-429 ORAL (09:52)
[2019-01-11] MEDS ORDERED: CLON1TAB13 PO (09:52)
[2019-01-11] MEDS ORDERED: ROSU10TA26 ORAL (09:52)
[2019-01-11] MEDS ORDERED: AMLODIPINE 10 MG TAB PO SCH (12:30)
[2019-01-11] MEDS ORDERED: POTASSIUM CHLORIDE (SR) 8 MEQ CAP PO SCH (12:30)
[2019-01-11] MEDS ORDERED: ONDANSETRON 4 MG INJ IV PRN (12:30)
[2019-01-11] MEDS ORDERED: clonAZEPAM 0.5 MG TAB PO PRN (12:30)
[2019-01-11] MEDS ORDERED: ACETAMINOPHEN 325 MG TAB PO PRN ×2 (12:30→19:30)
[2019-01-11] MEDS ORDERED: METOPROLOL 50 MG TAB PO SCH (12:30)
[2019-01-11] MEDS ORDERED: ALBUTEROL/IPRATROPIUM (NEB) 3 ML AMP HHN STA (12:32)
[2019-01-11] MEDS ORDERED: LEVOFLOXACIN 750 MG TABLET PO ONE (13:00)
[2019-01-11] MEDS ORDERED: FUROSEMIDE 40 MG INJ IV SCH (13:00)
--- NOTE | 2019-01-11 13:35 | HP ---
DATE OF ADMISSION: 01/11/2019 CHIEF COMPLAINT: Shortness of breath. HISTORY OF PRESENT ILLNESS: A 73-year-old male with a history of COPD, lung cancer, and recent pneu monia, returned to emergency room with complaint of shortness of breath and dyspnea on exertion. The patient denies any chest pain. He says that he has been compliant with his medications. Initial ev aluation revealed evidence of acute hypoxemic respiratory failure. The patient was placed on BiPAP. ABG showed a pH of 7.318, pCO2 of 82, pO2 of 71.5, and saturation of 93% on 2 liters. Chest x-ray w as consistent with pulmonary vascular congestion. BNP was elevated to 2600. White blood cell count was normal at 10.6. PAST MEDICAL HISTORY: 1. COPD. 2. Recent pneumonia. 3. History of lung cancer status post radiation therapy. 4. Coronary artery disease status post coronary artery bypass graft. 5. Benign prostatic hyperplasia. 6. Hypertension. 7. Hyperlipidemia. MEDICATIONS: Prior to admission: 1. Flomax 0.4 mg daily. 2. Plavix 75 mg daily. 3. Amlodipine 10 mg daily. 4. Isosorbide 10 mg t.i.d. 5. Toprol-XL 75 mg b.i.d. 6. Rosuvastatin 10 mg at bedtime. 7. Clonazepam as needed. 8. Lasix 40 mg daily. 9. Potassium chloride 8 mEq b.i.d. 10. I have prescribed Levaquin 750 mg daily. Two days prior to admission, this medication was not p art of his home medications list. SOCIAL HISTORY: The patient lives at home. He has remote history of tobacco use. PHYSICAL EXAMINATION: GENERAL: A well-developed and well-nourished male, who is in no apparent distress. VITAL SIGNS: Stable. He is afebrile. The patient is on BiPAP. NECK: Supple. LUNGS: Bibasilar crackles with diffuse rhonchi. CARDIAC: Regular rate and rhythm. No murmurs or gallops. ABDOMEN: Soft, nontender, nondistended, normoactive bowel sounds. EXTREMITIES: No clubbing, cyanosis, or edema. NEUROLOGICAL: Nonfocal, intact. ASSESSMENT: 1. A 73-year-old male with acute systolic congestive heart failure exacerbation. 2. Acute hypoxemic respiratory failure. 3. Hypercarbia. 4. COPD. 5. History of lung carcinoma status post radiation therapy. 6. Hypertension. 7. Hyperlipidemia. 8. Benign prostatic hyperplasia. PLAN: 1. Place in tele observation. Continue BiPAP. 2. IV Lasix 40 mg b.i.d. 3. Resume home medications. Dictated By: TONIE HNUT/SHANTELLE Conf#: [id number] DID#: [id number] CC: FLORIDA DARDEN MD;*EndCC*
--- NOTE | 2019-01-11 13:48 | CONS ---
Assessment/Plan Cardiology NYHA: II Heart Failure Type: Acute on Chronic Heart Failure Type: Both Assessment/Plan Hospital Course (Demo Recall) Acute decompensated systolic and diastolic congestive heart failure Recent pneumonia Low normal left ventricular ejection fraction 50 to 55% CAD with history of CABG and multiple PCI's, most recently at [facility] History of lung cancer History of brief atrial fibrillation Intermittent medication compliance Our patient was recently admitted for pneumonia and shortness of breath and elevated troponin. He was treated with antibiotics, intermittent diuretics. Patient refused stress test, patient intermittently refused antiplatelet therapy as well as antihypertensive medications including beta-sherly He presents back with decompensated congestive heart failure Would continue on IV diuretics Continue dual antiplatelet therapy Check serial cardiac enzymes Continue beta-blockers heart rate and blood pressure permits Statin therapy Consultation Date/Type/Reason Admit Date/Time Type of Consult Cardiology Reason for Consultation Shortness of breath Date/Time of Note DATE: 01/11/19 TIME: 13:40 Hx of Present Illness This is a 73-year-old male who was recently discharged from our facility yesterday. He was here for pneumonia, shortness of breath and elevated troponin. Patient was treated but with intermittent refusal of medications as well as further stress testing or cardiac work-up. He was sent home on home oxygen. Patient tells me he went home and he felt progressive worsening shortness of breath. Symptoms are worse with lying down and sleeping. Denies any palpitations. At home he did have a beef sandwich and after that his symptoms got worse and worse. He is unsure if he had any chest pain. He denies any chest pain currently. Denies any fevers or chills. He does complain of cough. He does feel better since he presented to the emergency room initially. 12 point review of systems was performed with all pertinent positives and negatives mentioned above and all else is negative Past Medical History Lung cancer COPD Medical History: congestive heart failure, coronary artery disease, hypertension, renal disease Home Meds Active Scripts Metoprolol Succinate* (Toprol XL*) 25 Mg Tab.sr.24h, 25 MG PO BID for 30 Days, 3 Refills Prov:TONIE MCCABE MD 01/08/19 Reported Medications Clonazepam* (Clonazepam*) 1 Mg Tablet, 1 MG PO BID WITH MEALS PRN for ANXIETY, TAB 01/11/19 Rosuvastatin Calcium (Rosuvastatin Calcium) 10 Mg Tablet, 1 TAB ORAL QHS 01/11/19 Metoprolol Tartrate* (Lopressor*) 50 Mg Tab, 1 TAB ORAL BID 01/11/19 Potassium Chloride* (Klor-Con*) 8 Meq Tablet.sa, 8 MEQ PO BID, TAB 10/09/18 Amlodipine Besylate* (Amlodipine Besylate*) 10 Mg Tablet, 10 MG PO DAILY, #30 TAB 10/09/18 Isosorbide Dinitrate* (Isosorbide Dinitrate*) 10 Mg Tablet, 10 MG PO TID, TAB 10/09/18 Tamsulosin Hcl* (Tamsulosin Hcl*) 0.4 Mg Cap.er.24h, 0.4 MG PO BID, CAP 04/25/18 Furosemide* (Furosemide*) 40 Mg Tablet, 40 MG PO DAILY, TAB 04/25/18 Clopidogrel Bisulfate* (Clopidogrel Bisulfate*) 75 Mg Tablet, 75 MG PO every 2 days, #30 TAB 04/25/18 Discontinued Scripts Albuterol/Ipratropium* (Combivent Respimat*) 20-100 Mcg/Inh - 4 Gm Aer.w.adap, 1 PUFF INHALATION QID, #1 INHALER Prov:TONIE MCCABE MD 01/08/19 Levofloxacin* (Levofloxacin*) 750 Mg Tablet, 750 MG PO DAILY for 5 Days, TAB Prov:TONIE MCCABE MD 01/08/19 Atorvastatin* (Atorvastatin*) 80 Mg Tablet, 80 MG PO HS for 30 Days, TAB 3 Refills Prov:TONIE MCCABE MD 01/08/19 Medications Current Medications Ondansetron HCl (Zofran Inj) 4 mg ER BRIDGE PRN IV NAUSEA/VOMITING; Start 01/11/19 at 12:30; Stop 01/12/19 at 12:29 Acetaminophen (Tylenol Tab) 650 mg ER BRIDGE PRN PO .MILD PAIN 1-3 OR TEMP; Start 01/11/19 at 12:30; Stop 01/12/19 at 12:29 Amlodipine Besylate (Norvasc) 10 mg DAILY PO ; Start 01/11/19 at 12:30 Clonazepam (Klonopin) 1 mg BID WITH MEALS PRN PO ANXIETY; Start 01/11/19 at 12:30 Clopidogrel Bisulfate (plaVIX) 75 mg DAILY PO ; Start 01/11/19 at 12:30 Isosorbide Dinitrate (Isordil) 10 mg TID PO ; Start 01/11/19 at 13:00 Metoprolol Succinate (Toprol Xl) 25 mg BID PO ; Start 01/11/19 at 12:30 Metoprolol Tartrate (Lopressor) 25 mg BID PO ; Start 01/11/19 at 12:30; Status UNV Potassium Chloride (Micro-K) 8 meq BID PO ; Start 01/11/19 at 12:30 Tamsulosin HCl (Flomax) 0.4 mg BID PO ; Start 01/11/19 at 12:30 Furosemide (Lasix) 40 mg BID IV ; Start 01/11/19 at 13:00 Allergies: Coded Allergies: Penicillins (Verified Allergy, Unknown, 01/11/19) meperidine HCl (Verified Allergy, Unknown, 01/11/19) morphine (Verified Allergy, Unknown, 01/11/19) Past Surgical History Past Surgical Hx: coronary bypass surgery Family History Significant Family History: no pertinent family hx Social History Smoking Status: Current every day smoker Exam/Review of Systems Vital Signs Vitals Vital Signs Date Temp Pulse Resp B/P (MAP) Pulse Ox O2 O2 Flow FiO2 Time Delivery Rate 01/11/19 83 20 155/80 97 BIPAP 13:26 (105) 01/11/19 98.0 4.0 09:47 01/11/19 40 07:46 Exam Constitutional: alert, oriented (On BiPAP, answering questions, no apparent distress) Head: normocephalic Respiratory: other (Coarse breath sounds bilaterally with scattered crackles) Cardiovascular: regular rate and rhythm (S1-S2 heard) Gastrointestinal: soft, non-tender, bowel sounds Extremities: edema (Trace) Labs Result Diagram: 01/11/19 0659 01/11/19 0659 Results 24hrs Laboratory Tests Test 01/11/19 06:50 01/11/19 06:59 01/11/19 10:30 Blood Gas Specimen Blood arterial Blood arterial Source Arterial Blood Date 01/11/2019 7:40:41 AM 01/11/2019 10:27:45 AM Drawn Arterial Blood pH 7.237 *L 7.318 L (Temp corrected) Arterial Blood pCO2 88.1 *H 82.7 *H (Temp correct) Arterial Blood pO2 442.6 H 71.5 L (Temp corrected) Arterial Blood HCO3 36.7 H 41.5 *H Arterial Blood Base 5.8 H 11.5 H Excess Arterial Blood 99.8 93.1 L Oxygen Saturation Levon Test ACCEPTAB ACCEPTAB Arterial Blood Gas Right Radial Left Radial Puncture Site Arterial 0.9 0.8 Blood Carboxyhemoglobin Arterial Blood 0.4 0.3 Methemoglobin Blood Gas A-a O2 182.3 H 30.6 H Differential Oxyhemoglobin Percent 98.5 92.1 L Blood Gas Temperature 37.0 37.0 Blood Gas Respiration 18.0 Rate Blood Gas Actual 19 Respiration Rate Blood Gas Modality MASK - BIPAP NASAL CANNULA FiO2 100.0 28.0 Blood Gas Pressure 10 Support Blood Gas Critical DR KATALINA DARDEN Value Read Back Blood Gas Notified Whom RODNEY Rodriguez Blood Gas Notified 01/11/2019 7:56:47 AM 01/11/2019 10:39:49 AM Time White Blood Count 10.6 # Red Blood Count 4.91 Hemoglobin 13.9 L Hematocrit 45.3 Mean Corpuscular Volume 92.3 Mean Corpuscular 28.3 L Hemoglobin Mean Corpuscular 30.7 L Hemoglobin Concent Red Cell Distribution 13.4 Width Platelet Count 235 # Mean Platelet Volume 10.8 H Immature Granulocytes % 0.300 Neutrophils % 79.5 H Lymphocytes % 12.8 L Monocytes % 4.7 Eosinophils % 2.1 Basophils % 0.6 Nucleated Red Blood 0.0 Cells % Immature Granulocytes # 0.030 Neutrophils # 8.4 H Lymphocytes # 1.4 Monocytes # 0.5 Eosinophils # 0.2 Basophils # 0.1 Nucleated Red Blood 0.0 Cells # Prothrombin Time 13.1 Prothrombin Time Ratio 1.0 INR International 0.98 Normalized Ratio Activated 37.9 H Partial Thromboplast Time Sodium Level 142 Potassium Level 4.9 Chloride Level 96 L Carbon Dioxide Level 38 H Anion Gap 8 Blood Urea Nitrogen 19 Creatinine 1.03 Est Glomerular Filtrat Rate mL/min Glucose Level 164 Calcium Level 8.8 Total Bilirubin 0.7 Direct Bilirubin 0.00 Indirect Bilirubin 0.7 Aspartate Amino 74 H Transf (AST/SGOT) Alanine 59 Aminotransferase (ALT/S GPT) Alkaline Phosphatase 99 Troponin I 0.098 B-Type Natriuretic 2600 H Peptide Total Protein 7.6 Albumin 3.9 Globulin 3.70 H Albumin/Globulin Ratio 1.05 Imaging Imaging ECG sinus rhythm at 75 bpm, left ventricular hypertrophy with QRS 94 ms, nonspecific ST abnormalities Medications Medications Current Medications Ondansetron HCl (Zofran Inj) 4 mg ER BRIDGE PRN IV NAUSEA/VOMITING; Start 01/11/19 at 12:30; Stop 01/12/19 at 12:29 Acetaminophen (Tylenol Tab) 650 mg ER BRIDGE PRN PO .MILD PAIN 1-3 OR TEMP; Start 01/11/19 at 12:30; Stop 01/12/19 at 12:29 Amlodipine Besylate (Norvasc) 10 mg DAILY PO ; Start 01/11/19 at 12:30 Clonazepam (Klonopin) 1 mg BID WITH MEALS PRN PO ANXIETY; Start 01/11/19 at 12:30 Clopidogrel Bisulfate (plaVIX) 75 mg DAILY PO ; Start 01/11/19 at 12:30 Isosorbide Dinitrate (Isordil) 10 mg TID PO ; Start 01/11/19 at 13:00 Metoprolol Succinate (Toprol Xl) 25 mg BID PO ; Start 01/11/19 at 12:30 Metoprolol Tartrate (Lopressor) 25 mg BID PO ; Start 01/11/19 at 12:30; Status UNV Potassium Chloride (Micro-K) 8 meq BID PO ; Start 01/11/19 at 12:30 Tamsulosin HCl (Flomax) 0.4 mg BID PO ; Start 01/11/19 at 12:30 Furosemide (Lasix) 40 mg BID IV ; Start 01/11/19 at 13:00 Chris Botello DO Jan 11, 2019 13:48
[2019-01-11] MEDS ORDERED: BUMETANIDE 3 MG in DEXTROSE 5% 18 ML IV ONE (15:00)
[2019-01-11] MEDS: TAMSULOSIN (SR) 0.4 MG CAP PO SCH ×2 (15:10→20:47)
[2019-01-11] MEDS: CLOPIDOGREL 75 MG TAB PO SCH (15:10)
[2019-01-11] MEDS: METOPROLOL (XL) 25 MG TAB PO SCH ×2 (15:11→20:48)
[2019-01-11] MEDS: ISOSORBIDE DINITRATE 10 MG TAB PO SCH ×2 (15:11→20:48)
[2019-01-11 15:18] VITALS: BP 155/71; PULSE 89; RESP 22
[2019-01-11] MEDS: HYDROCODONE/APAP (10/325) TAB PO PRN (16:06)
[2019-01-11] MEDS: LORAZEPAM 1 MG TAB PO PRN ×2 (16:32→22:03)
[2019-01-11 16:38] VITALS: PULSE 87
[2019-01-11] MEDS ORDERED: ALBUTEROL/IPRATROPIUM (NEB) 3 ML AMP HHN PRN (17:00)
[2019-01-11 20:00] VITALS: BP 142/76; PULSE 84; RESP 20
[2019-01-11] MEDS ORDERED: ALBUTEROL/IPRATROPIUM (NEB) 3 ML AMP HHN SCH (20:00)
[2019-01-11] MEDS: ALBUTEROL/IPRATROPIUM (NEB) 3 ML AMP HHN SCH (20:40)
[2019-01-11] MEDS: ATORVASTATIN 40 MG TAB PO SCH (20:47)
[2019-01-11] MEDS ORDERED: METOPROLOL (XL) 25 MG TAB PO SCH (21:00)
[2019-01-11 22:08] VITALS: PULSE 90
[2019-01-12] VITALS (11 sets, daily range): BP systolic 105–145; BP diastolic 55–80; PULSE 68–96; RESP 18–22
[2019-01-12] MEDS: ALBUTEROL/IPRATROPIUM (NEB) 3 ML AMP HHN SCH ×6 (00:04→21:10)
[2019-01-12] MEDS: BUMETANIDE 1 MG INJ IV SCH ×2 (05:53→17:05)
[2019-01-12] MEDS: LORAZEPAM 1 MG TAB PO PRN ×2 (06:33→20:40)
[2019-01-12] MEDS: METOPROLOL (XL) 25 MG TAB PO SCH ×2 (08:36→20:41)
[2019-01-12] MEDS: CLOPIDOGREL 75 MG TAB PO SCH (08:36)
[2019-01-12] MEDS: ISOSORBIDE DINITRATE 10 MG TAB PO SCH ×3 (08:36→20:41)
[2019-01-12] MEDS: ASPIRIN 81 MG TAB PO SCH (08:36)
[2019-01-12] MEDS: TAMSULOSIN (SR) 0.4 MG CAP PO SCH ×2 (08:36→20:40)
--- NOTE | 2019-01-12 10:15 | PN ---
Date/Time of Note Date/Time of Note DATE: 01/12/19 TIME: 10:12 Subjective Feels much better. No shortness of breath or chest pain. Having a dry cough. Objective Vitals Vital Signs Date Temp Pulse Resp B/P (MAP) Pulse Ox O2 O2 Flow FiO2 Time Delivery Rate 01/12/19 95 20 92 Nasal 2.0 28 09:14 Cannula 01/12/19 98.6 133/63 07:39 (86) Intake and Output 01/11/19 01/11/19 01/12/19 1515:00 23:00 07:00 IntakeIntake Total 270 ml 500 ml OutputOutput Total 2500 ml 2160 ml BalanceBalance -2500 ml 270 ml -1660 ml Bilateral rhonchi. No wheezes no crackles Regular rate and rhythm no murmurs or gallops Soft nontender nondistended normoactive bowel sounds No edema Nonfocal Results Result Diagram: 01/12/1952001/12/19520 Medications Medications Current Medications Clonazepam (Klonopin) 1 mg BID WITH MEALS PRN PO ANXIETY; Start 01/11/19 at 12:30 Clopidogrel Bisulfate (plaVIX) 75 mg DAILY PO Last administered on 01/12/19 08:36; Admin Dose 75 MG; Start 01/11/19 at 12:30 Isosorbide Dinitrate (Isordil) 10 mg TID PO Last administered on 01/12/19 08:36; Admin Dose 10 MG; Start 01/11/19 at 13:00 Metoprolol Succinate (Toprol Xl) 25 mg BID PO Last administered on 01/12/19 08:36; Admin Dose 25 MG; Start 01/11/19 at 12:30 Tamsulosin HCl (Flomax) 0.4 mg BID PO Last administered on 01/12/19 08:36; Admin Dose 0.4 MG; Start 01/11/19 at 12:30 Bumetanide (Bumex) 1 mg BID DIURETICS IV Last administered on 01/12/19 05:53; Admin Dose 1 MG; Start 01/12/19 at 06:00 Atorvastatin Calcium (Lipitor) 40 mg HS PO Last administered on 01/11/19at 20:47; Admin Dose 40 MG; Start 01/11/19 at 21:00 Aspirin (Aspirin) 81 mg DAILY PO Last administered on 01/12/19 08:36; Admin Dose 81 MG; Start 01/12/19 at 09:00 Acetaminophen/ Hydrocodone Bitart ([place] (10/325)) 1 tab Q6H PRN PO MODERATE PAIN LEVEL 4-6 Last administered on 01/11/19at 16:06; Admin Dose 1 TAB; Start 01/11/19 at 15:00 Lorazepam (Ativan) 1 mg Q6H PRN PO ANXIETY Last administered on 01/12/19at 06:33; Admin Dose 1 MG; Start 01/11/19 at 15:00 Albuterol/ Ipratropium (Duoneb) 3 ml Q4H RESP THERAPY PRN HHN SHORTNESS OF BREATH; Start 01/11/19 at 17:00 Albuterol/ Ipratropium (Duoneb) 3 ml Q4H RESP THERAPY HHN Last administered on 01/12/19at 09:13; Admin Dose 3 ML; Start 01/11/19 at 21:00 Acetaminophen (Tylenol Tab) 650 mg Q4H PRN PO MILD PAIN(1-3)OR ELEVATED TEMP Last administered on 01/11/19at 20:48; Admin Dose 650 MG; Start 01/11/19 at 19:30 VTE Prophylaxis Risk score (from Nsg)>0 risk: 7 SCD applied (from Nsg): Yes Lines/Catheters IV Catheter Type: Saline Lock Cota in Place: No Assessment/Plan Assessment/Plan 73-year-old male with acute systolic CHF exacerbation Coronary artery disease, stable COPD Recent pneumonia Acute hypoxemic respiratory failure, resolved History of lung cancer status post radiation therapy Continue current therapy Daily diuretic therapy Pulmonary and cardiology follow-up Discharge planning in TONIE Valdez MD Jan 12, 2019 10:15
[2019-01-12] MEDS ORDERED: ONDANSETRON 4 MG INJ IV PRN (10:30)
[2019-01-12] MEDS: HYDROCODONE/APAP (10/325) TAB PO PRN ×2 (10:41→12:11)
[2019-01-12] MEDS: LACTULOSE 30ML CUP PO PRN (10:41)
--- NOTE | 2019-01-12 10:49 | CONS ---
Assessment/Plan Cardiology NYHA: II Heart Failure Type: Acute on Chronic Heart Failure Type: Both Assessment/Plan Assessment/Plan (Daily) Acute decompensated systolic and diastolic congestive heart failure Recent pneumonia Low normal left ventricular ejection fraction 50 to 55% CAD with history of CABG and multiple PCI's, most recently at [facility] History of lung cancer History of brief atrial fibrillation Intermittent medication compliance Our patient was recently admitted for pneumonia and shortness of breath and elevated troponin. He was treated with antibiotics, intermittent diuretics. Patient refused stress test, patient intermittently refused antiplatelet therapy as well as antihypertensive medications including beta-sherly He presents back with decompensated congestive heart failure Would continue on IV diuretics - excellent diureisis overnight, BUN lsightly elevated Continue dual antiplatelet therapy Continue beta-blockers heart rate and blood pressure permits Statin therapy Consultation Date/Type/Reason Admit Date/Time Jan 11, 2019 at 12:22 Initial Consult Date Type of Consult Cardiology Date/Time of Note DATE: 01/12/19 TIME: 10:48 24 HR Interval Summary Free Text/Dictation The patinet with no change Exam/Review of Systems Vital Signs Vitals Vital Signs Date Temp Pulse Resp B/P (MAP) Pulse Ox O2 O2 Flow FiO2 Time Delivery Rate 01/12/19 95 20 92 Nasal 2.0 28 09:14 Cannula 01/12/19 98.6 133/63 07:39 (86) Intake and Output 01/11/19 01/11/19 01/12/19 1515:00 23:00 07:00 IntakeIntake Total 270 ml 500 ml OutputOutput Total 2500 ml 2160 ml BalanceBalance -2500 ml 270 ml -1660 ml Labs Result Diagram: 01/12/1952001/12/19 05 Results 24hrs Laboratory Tests Test 01/11/19 15:37 01/11/19 22:05 01/12/19 05:21 Creatine Kinase 239 H 167 Creatine Kinase Index 1.0 0.9 Creatinine Kinase MB (Mass) 2.36 1.43 Troponin I 0.063 0.086 White Blood Count 8.6 Red Blood Count 4.46 L Hemoglobin 12.3 L Hematocrit 39.6 L Mean Corpuscular Volume 88.8 Mean Corpuscular Hemoglobin 27.6 L Mean Corpuscular Hemoglobin Concent 31.1 L Red Cell Distribution Width 13.7 Platelet Count 215 Mean Platelet Volume 10.9 H Immature Granulocytes % 0.600 H Neutrophils % 74.0 Lymphocytes % 13.5 L Monocytes % 8.8 Eosinophils % 2.6 Basophils % 0.5 Nucleated Red Blood Cells % 0.0 Immature Granulocytes # 0.050 H Neutrophils # 6.3 Lymphocytes # 1.2 Monocytes # 0.8 Eosinophils # 0.2 Basophils # 0.0 Nucleated Red Blood Cells # 0.0 Sodium Level 140 Potassium Level 3.6 Chloride Level 93 L Carbon Dioxide Level 39 H Anion Gap 8 Blood Urea Nitrogen 26 H Creatinine 1.20 Est Glomerular Filtrat Rate mL/min Glucose Level 103 # Calcium Level 8.4 Medications Medications Current Medications Clonazepam (Klonopin) 1 mg BID WITH MEALS PRN PO ANXIETY; Start 01/11/19 at 12:30 Clopidogrel Bisulfate (plaVIX) 75 mg DAILY PO Last administered on 01/12/19 08:36; Admin Dose 75 MG; Start 01/11/19 at 12:30 Isosorbide Dinitrate (Isordil) 10 mg TID PO Last administered on 01/12/19 08:36; Admin Dose 10 MG; Start 01/11/19 at 13:00 Metoprolol Succinate (Toprol Xl) 25 mg BID PO Last administered on 01/12/19 08:36; Admin Dose 25 MG; Start 01/11/19 at 12:30 Tamsulosin HCl (Flomax) 0.4 mg BID PO Last administered on 01/12/19 08:36; Admin Dose 0.4 MG; Start 01/11/19 at 12:30 Bumetanide (Bumex) 1 mg BID DIURETICS IV Last administered on 01/12/19 05:53; Admin Dose 1 MG; Start 01/12/19 at 06:00 Atorvastatin Calcium (Lipitor) 40 mg HS PO Last administered on 01/11/19 20:47; Admin Dose 40 MG; Start 01/11/19 at 21:00 Aspirin (Aspirin) 81 mg DAILY PO Last administered on 01/12/19 08:36; Admin Dose 81 MG; Start 01/12/19 at 09:00 Acetaminophen/ Hydrocodone Bitart ([place] (10/325)) 1 tab Q6H PRN PO MODERATE PAIN LEVEL 4-6 Last administered on 01/11/19 16:06; Admin Dose 1 TAB; Start 01/11/19 at 15:00 Lorazepam (Ativan) 1 mg Q6H PRN PO ANXIETY Last administered on 01/12/19 06:33; Admin Dose 1 MG; Start 01/11/19 at 15:00 Albuterol/ Ipratropium (Duoneb) 3 ml Q4H RESP THERAPY PRN HHN SHORTNESS OF BREATH; Start 01/11/19 at 17:00 Albuterol/ Ipratropium (Duoneb) 3 ml Q4H RESP THERAPY HHN Last administered on 01/12/19 09:13; Admin Dose 3 ML; Start 01/11/19 at 21:00 Acetaminophen (Tylenol Tab) 650 mg Q4H PRN PO MILD PAIN(1-3)OR ELEVATED TEMP Last administered on 01/11/19 20:48; Admin Dose 650 MG; Start 01/11/19 at 19:30 Ondansetron HCl (Zofran Inj) 4 mg Q4H PRN IV NAUSEA AND/OR VOMITING Last administered on 01/12/19 10:41; Admin Dose 4 MG; Start 01/12/19 at 10:30 Lactulose (Enulose) 20 gm Q6H PRN PO CONSTIPATION Last administered on 01/12/19 10:41; Admin Dose 20 GM; Start 01/12/19 at 10:30 SHER BUCHANAN MD Jan 12, 2019 10:49
--- NOTE | 2019-01-12 11:29 | CONS ---
DATE OF ADMISSION: 01/11/2019 DATE OF CONSULTATION: 01/12/2019 REASON FOR CONSULTATION: Pulmonary. Thank you, Dr. Jack for this consultation. HISTORY OF PRESENT ILLNESS: This is a 73-year-old gentleman with a history of COPD, lung cancer stat us post radiation treatment, coronary artery disease with multiple PCIs, recently discharged from [facility] following pneumonia and heart failure, comes back in with increasing shortn ess of breath, orthopnea, PND. Per chart, it appears the patient has refused stress test and intermi ttently refused antiplatelet therapy. Currently, he states he has exertional dyspnea but no fever, c hills, chest pain or palpitations. Regarding his lung cancer, the patient states he was never treate d with chemotherapy, only radiation treatment at [facility]. PAST MEDICAL HISTORY: Remote tobacco history, history of lung cancer status post radiation, systolic and diastolic heart failure, coronary artery disease, status post percutaneous coronary intervention . MEDICATIONS: Per chart. ALLERGIES: 1. PENICILLIN. 2. MEPERIDINE. 3. MORPHINE. SOCIAL HISTORY: He is an ex-smoker, no alcohol, no history of drug use. FAMILY HISTORY: Noncontributory. SYSTEMS REVIEW: A 12-point review of systems was negative other than that mentioned above. PHYSICAL EXAMINATION: GENERAL: Well-nourished, well-developed gentleman, comfortable at rest, talking in full and complete sentences on 2 L nasal cannula. NECK: Supple. No JVD or lymphadenopathy. CARDIAC: S1, S2, no added sounds or murmurs. CHEST: Diminished air entry bilaterally. ABDOMEN: Soft, nontender. No guarding or rebound. EXTREMITIES: No cyanosis, clubbing, edema. NEUROLOGICAL: Grossly intact. No focal deficits. LABORATORY DATA: White count 8.6, hemoglobin 12.3, platelets of 215. Chemistry within normal limits . BNP mildly elevated at 2600. ABG shows a chronic respiratory acidosis with a pCO2 of 82, pH 7.31, pCO2 of 71. IMPRESSION AND PLAN: 1. Recurrent hypoxemic respiratory failure, likely secondary to worsening congestive cardiac failure . 2. Chronic hypoxemia with hypercapnia. Will require noninvasive positive pressure ventilation at [facility], likely a Trilogy device. 3. . 4. History of lung cancer status post radiation treatment. Dictated By: ALEXSANDER ARTHUR/SHANTELLE Conf#: [id number] [facility]#: [id number] CC: TONIE JACK MD;*End*
[2019-01-12] MEDS: ATORVASTATIN 40 MG TAB PO SCH (20:40)
[2019-01-13] VITALS (7 sets, daily range): BP systolic 107–139; BP diastolic 61–73; PULSE 68–84; RESP 18–22
[2019-01-13] MEDS: ALBUTEROL/IPRATROPIUM (NEB) 3 ML AMP HHN SCH ×4 (01:19→12:14)
[2019-01-13] MEDS: BUMETANIDE 1 MG INJ IV SCH (05:01)
[2019-01-13] MEDS: LACTULOSE 30ML CUP PO PRN (08:04)
[2019-01-13] MEDS: ASPIRIN 81 MG TAB PO SCH (08:05)
[2019-01-13] MEDS: CLOPIDOGREL 75 MG TAB PO SCH (08:05)
[2019-01-13] MEDS: TAMSULOSIN (SR) 0.4 MG CAP PO SCH (08:05)
[2019-01-13] MEDS ORDERED: NA PHOSPHATE/BIPHOS 133 ML ENEMA PR ONE (08:30)
[2019-01-13] MEDS: ISOSORBIDE DINITRATE 10 MG TAB PO SCH ×2 (09:30→13:54)
[2019-01-13] MEDS: METOPROLOL (XL) 25 MG TAB PO SCH (09:30)
[2019-01-13] MEDS ORDERED: IPRA4AER INHALATION (10:41)
[2019-01-13] MEDS ORDERED: ASPI-831 PO (10:41)
--- NOTE | 2019-01-13 10:42 | PDOCDIS ---
Discharge Instructions CONDITION [id number] Patient Condition: [id number] Good HOME CARE INSTRUCTIONS: [id number] Diet Instructions: [id number] FOLLOW UP/APPOINTMENTS Follow-up Plan pcp 1 week TONIE MCCABE MD Jan 13, 2019 10:42
[2019-01-13] MEDS ORDERED: FURO-109 PO (10:47)
--- NOTE | 2019-01-13 11:08 | CONS ---
Consult Date/Type/Reason Admit Date/Time Jan 11, 2019 at 12:22 Initial Consult Date Type of Consult Pulmonary Date/Time of Note DATE: 01/13/19 TIME: 11:07 Subjective Patient is comfortable this morning. No new events still somewhat short of breath on exertion Objective Vital Signs Date Temp Pulse Resp B/P (MAP) Pulse Ox O2 O2 Flow FiO2 Time Delivery Rate 01/13/19 2.0 08:40 01/13/19 98.0 81 22 117/63 96 Nasal 08:10 (81) Cannula 01/13/19 28 04:48 Intake and Output 01/12/19 01/12/19 01/13/19 1515:00 23:00 07:00 IntakeIntake Total 600 ml OutputOutput Total 1300 ml 850 ml BalanceBalance -1300 ml -250 ml Exam PHYSICAL EXAMINATION: GENERAL: Well-nourished, well-developed gentleman, comfortable at rest, talking in full and complete sentences on 2 L nasal cannula. NECK: Supple. No JVD or lymphadenopathy. CARDIAC: S1, S2, no added sounds or murmurs. CHEST: Diminished air entry bilaterally. ABDOMEN: Soft, nontender. No guarding or rebound. EXTREMITIES: No cyanosis, clubbing, edema. NEUROLOGICAL: Grossly intact. No focal deficits. Vent Setting Fraction of Inspired Oxygen pe: 28 Results/Medications Result Diagram: 01/12/19 0521 01/13/19 0504 Results 24 hrs Laboratory Tests Test 01/12/19 12:00 01/13/19 05:04 Blood Gas Specimen Source Blood arterial Arterial Blood Date Drawn 01/12/2019 12:37:45 AM Arterial Blood pH (Temp corrected) 7.487 H Arterial Blood pCO2 (Temp correct) 52.4 H Arterial Blood pO2 (Temp corrected) 67.9 L Arterial Blood HCO3 38.8 H Arterial Blood Base Excess 13.2 H Arterial Blood Oxygen Saturation 94.2 L Levon Test ACCEPTAB Arterial Blood Gas Puncture Site Right Radial Arterial Blood Carboxyhemoglobin 1.2 Arterial Blood Methemoglobin 0.4 Blood Gas A-a O2 Differential 69.9 H Oxyhemoglobin Percent 92.7 L Blood Gas Temperature 37.0 Blood Gas Respiration Rate 14.0 Blood Gas Actual Respiration Rate 22 Blood Gas Modality MASK - BIPAP FiO2 28.0 Blood Gas Pressure Support 15 Blood Gas IPAP/EPAP Ratio 20/5 Blood Gas Notified Whom LW Blood Gas Notified Time 01/12/2019 12:49:01 AM Sodium Level 143 Potassium Level 3.6 Chloride Level 92 L Carbon Dioxide Level 40 H Anion Gap 11 Blood Urea Nitrogen 27 H Creatinine 1.21 Est Glomerular Filtrat Rate mL/min Glucose Level 102 Calcium Level 8.2 L Medications Current Medications Clonazepam (Klonopin) 1 mg BID WITH MEALS PRN PO ANXIETY Last administered on 01/13/19 04:24; Admin Dose 1 MG; Start 01/11/19 at 12:30 Clopidogrel Bisulfate (plaVIX) 75 mg DAILY PO Last administered on 01/13/19 08:05; Admin Dose 75 MG; Start 01/11/19 at 12:30 Isosorbide Dinitrate (Isordil) 10 mg TID PO Last administered on 01/13/19 09:30; Admin Dose 10 MG; Start 01/11/19 at 13:00 Metoprolol Succinate (Toprol Xl) 25 mg BID PO Last administered on 01/13/19 09:30; Admin Dose 25 MG; Start 01/11/19 at 12:30 Tamsulosin HCl (Flomax) 0.4 mg BID PO Last administered on 01/13/19 08:05; Admin Dose 0.4 MG; Start 01/11/19 at 12:30 Bumetanide (Bumex) 1 mg BID DIURETICS IV Last administered on 01/13/19 05:01; Admin Dose 1 MG; Start 01/12/19 at 06:00 Atorvastatin Calcium (Lipitor) 40 mg HS PO Last administered on 01/12/19 20:40; Admin Dose 40 MG; Start 01/11/19 at 21:00 Aspirin (Aspirin) 81 mg DAILY PO Last administered on 01/13/19 08:05; Admin Dose 81 MG; Start 01/12/19 at 09:00 Acetaminophen/ Hydrocodone Bitart ([place] (10/325)) 1 tab Q6H PRN PO MODERATE PAIN LEVEL 4-6 Last administered on 01/12/19 12:11; Admin Dose 1 TAB; Start 01/11/19 at 15:00 Lorazepam (Ativan) 1 mg Q6H PRN PO ANXIETY Last administered on 01/12/19 20:40; Admin Dose 1 MG; Start 01/11/19 at 15:00 Albuterol/ Ipratropium (Duoneb) 3 ml Q4H RESP THERAPY PRN HHN SHORTNESS OF BREATH; Start 01/11/19 at 17:00 Albuterol/ Ipratropium (Duoneb) 3 ml Q4H RESP THERAPY HHN Last administered on 01/13/19at 04:47; Admin Dose 3 ML; Start 01/11/19 at 21:00 Acetaminophen (Tylenol Tab) 650 mg Q4H PRN PO MILD PAIN(1-3)OR ELEVATED TEMP Last administered on 01/11/19at 20:48; Admin Dose 650 MG; Start 01/11/19 at 19:30 Ondansetron HCl (Zofran Inj) 4 mg Q4H PRN IV NAUSEA AND/OR VOMITING Last administered on 01/12/19at 10:41; Admin Dose 4 MG; Start 01/12/19 at 10:30 Lactulose (Enulose) 20 gm Q6H PRN PO CONSTIPATION Last administered on 01/13/19 08:04; Admin Dose 20 GM; Start 01/12/19 at 10:30 Assessment/Plan Hospital Course (Demo Recall) Assessment 1. Hypoxemia and respiratory distress multifactorial combination of COPD prior lung cancer CHF and CAD. Significant anxiety component also. Plan 1. Discharge planning okay from pulmonary standpoint does need outpatient sleep study for possible home CPAP. ALEXSANDER DUBOSE MD, [facility] Jan 13, 2019 11:08
--- NOTE | 2019-01-13 18:39 | DS ---
DATE OF ADMISSION: 01/11/2019 DATE OF DISCHARGE: 01/13/2019 DISCHARGE DIAGNOSES: 1. A 73-year-old male with acute systolic and diastolic congestive heart failure exacerbation, resol tatiana. 2. Chronic obstructive pulmonary disease. 3. History of lung cancer, status post radiation therapy. 4. Recent community-acquired pneumonia. 5. Coronary artery disease, stable. 6. Hypertension. 7. Hyperlipidemia. 8. Benign prostatic hyperplasia. HOSPITAL COURSE: A 73-year-old male with history of lung cancer and COPD, returned to the emergency room with complaint of shortness of breath and dyspnea on exertion. At this time, he was diagnosed w ith acute systolic and diastolic congestive heart failure exacerbation. The patient was recently dis charged from the hospital following community-acquired pneumonia. A 2D echo during previous admissio n showed EF of 50% to 55%. The patient was seen in consultation by cardiology and pulmonary group. He responded well to diureti c therapy and his condition improved significantly. I encouraged him to continue Lasix at home. His lung exam was unremarkable. The patient is in stable condition for discharge. MEDICATIONS ON DISCHARGE: 1. Flomax 0.4 mg b.i.d. 2. Plavix 75 mg daily. 3. Isosorbide dinitrate 10 mg t.i.d. 4. Toprol-XL 75 mg daily. 5. Lasix 40 mg daily. 6. Potassium supplement 8 mEq b.i.d. 7. Clonazepam 1 mg twice daily as needed. 8. Aspirin 81 mg daily. 9. Combivent 1 puff q.i.d. Follow up with PCP in 1 week. Dictated By: TONIE HUNT/SHANTELLE Conf#: [id number] DID#: [id number] CC: ALEXSANDER DUBOSE MD; LILLIAN WALTER DO;*EndCC*
== END 2019-01-13 15:28 | disposition home or self-care (01) ==
LOC: E/R 06:43 → 6WM 12:22 → INTOOBSV 12:22 → 6WM 14:11
PROVIDERS: ADMIT Internal Medicine; ATTEND Internal Medicine
DX: I11.0 Hypertensive heart disease with heart failure (principal); I50.41 Acute combined systolic (congestive) and diastolic (congestive) heart failure; J18.9 Pneumonia, unspecified organism; I25.10 Atherosclerotic heart disease of native coronary artery without angina pectoris; Z95.1 Presence of aortocoronary bypass graft; Z95.5 Presence of coronary angioplasty implant and graft; J44.9 Chronic obstructive pulmonary disease, unspecified; E78.5 Hyperlipidemia, unspecified; N40.0 Benign prostatic hyperplasia without lower urinary tract symptoms; F17.200 Nicotine dependence, unspecified, uncomplicated; Z85.118 Personal history of other malignant neoplasm of bronchus and lung; Z92.3 Personal history of irradiation
CPT/HCPCS: 36415; 36600; 71045; 80048; 80053; 82550; 82553; 82803; 83880; 84484; 85025; 85610; 85730; 93005; 94640; 94644; 94660; 94664; 96374; 99285; G0378; J1940; J2405

== ENCOUNTER 2019-01-16 13:18 | Emergency (ER) | payer MEDICARE, OTHER ==
[~2019-01-16] VITALS: Ht 172.7 cm; Wt 90.0 kg
[~2019-01-16 13:18] MED LIST changes: +ASPI-831 PO; -ATOR-2 PO; +CLON1TAB13 PO; +FURO-109 PO; -LEVO750T8 PO; +METO-429 ORAL; +ROSU10TA26 ORAL
[2019-01-16 13:23] VITALS: Ht 172.7 cm; Wt 90.0 kg
--- NOTE | 2019-01-16 13:58 | ERD ---
ER Documentation Chief Complaint Chief Complaint SOB X 1 DAY , UNABLE TO URINATE SINCE LAST NIGHT , H/O CHF HPI This is a 73-year-old male with a past medical history of hypertension, hyperlipidemia, coronary artery disease, congestive heart failure, recent episode of pneumonia, COPD, lung cancer, BPH, multiple admissions to the [facility] over the last 2 weeks for respiratory distress and heart failure, currently on Lasix, now presenting for persistent shortness of breath as well as urinary retention. Prior to the patient's previous discharge, the patient had successful medical management and improvement of his heart failure. However, since discharge, the patient reports continued shortness of breath. He feels like fluid is on his lungs and he reports a congested nonproductive cough. He feels like he cannot bring it up. The patient does not endorse chest pain or tightness or pressure. He does not endorse pleuritic pain. He does not endorse diaphoresis. He does not endorse lightheadedness or dizziness. The patient has a secondary complaint of urinary retention. The patient is still peeing every couple hours, but he reports that he feels like it is decreased and he has to strain to urinate. He reports that he does not have a sensation that he, but he tries because he knows he has to get fluid off of his lungs. The patient has been taking Flomax for BPH. He has also been taking Lasix twice a day. The patient took his Lasix this morning, but he felt that it did not change anything. He called his primary care physician, Dr. Peguero, who recommended that he take a second dose of Lasix this morning. He told the patient to go to the emergency department if there was no improvement. The patient denies fever or chills. The patient has had no headache or vision changes. The patient does not endorse neck or back pain. The patient denies nausea or vomiting. The patient denies abdominal pain. The patient denies changes to bowel movements. The patient has had no focal deficits. The patient has had no weakness or numbness or tingling to the face or extremities. ROS All systems reviewed and are negative except as per history of present illness. Medications Home Meds Active Scripts Furosemide* (Lasix*) 40 Mg Tablet, 40 MG PO DAILY for 30 Days, TAB 3 Refills Prov:TONIE MCCABE MD 01/13/19 Albuterol/Ipratropium* (Combivent Respimat*) 20-100 Mcg/Inh - 4 Gm Aer.w.adap, 1 PUFF INHALATION QID for 30 Days, #1 INHALER Prov:TONIE MCCABE MD 01/13/19 Aspirin (Aspirin) 81 Mg Chew, 81 MG PO DAILY for 30 Days, TAB Prov:TONIE MCCABE MD 01/13/19 Reported Medications Lorazepam* (Ativan*) 2 Mg Tablet, 2 MG PO BID PRN for ANXIETY, #30 TAB 01/16/19 Hydrocodone/Acetaminophen ([place] 10-325 Tablet) 1 Each Tablet, 1 EACH PO BID, TAB 01/16/19 Meclizine Hcl* (Meclizine Hcl*) 25 Mg Tablet, 25 MG PO Q8H PRN for DIZZINESS, TAB 01/16/19 Esomeprazole Mag Trihydrate (Nexium) 40 Mg Capsule.dr, 40 MG PO DAILY, #30 CAP 01/16/19 Clopidogrel Bisulfate* (Clopidogrel Bisulfate*) 75 Mg Tablet, 75 MG PO DAILY, #30 TAB 01/16/19 Rosuvastatin Calcium (Rosuvastatin Calcium) 10 Mg Tablet, 1 TAB ORAL QHS 01/11/19 Metoprolol Tartrate* (Lopressor*) 50 Mg Tab, 1 TAB ORAL BID 01/11/19 Potassium Chloride* (Klor-Con*) 8 Meq Tablet.sa, 8 MEQ PO BID, TAB 10/09/18 Amlodipine Besylate* (Amlodipine Besylate*) 10 Mg Tablet, 10 MG PO DAILY, #30 TAB 10/09/18 Tamsulosin Hcl* (Tamsulosin Hcl*) 0.4 Mg Cap.er.24h, 0.4 MG PO BID, CAP 04/25/18 Discontinued Reported Medications Clonazepam* (Clonazepam*) 1 Mg Tablet, 1 MG PO BID WITH MEALS PRN for ANXIETY, TAB 01/11/19 Isosorbide Dinitrate* (Isosorbide Dinitrate*) 10 Mg Tablet, 10 MG PO TID, TAB 10/09/18 Furosemide* (Furosemide*) 40 Mg Tablet, 40 MG PO DAILY for 30 Days, TAB 04/25/18 Clopidogrel Bisulfate* (Clopidogrel Bisulfate*) 75 Mg Tablet, 75 MG PO every 2 days, #30 TAB 04/25/18 Discontinued Scripts Metoprolol Succinate* (Toprol XL*) 25 Mg Tab.sr.24h, 25 MG PO BID for 30 Days, 3 Refills Prov:TONIE MCCABE MD 01/08/19 Albuterol/Ipratropium* (Combivent Respimat*) 20-100 Mcg/Inh - 4 Gm Aer.w.adap, 1 PUFF INHALATION QID, #1 INHALER Prov:TONIE MCCABE MD 01/08/19 Levofloxacin* (Levofloxacin*) 750 Mg Tablet, 750 MG PO DAILY for 5 Days, TAB Prov:TONIE MCCABE MD 01/08/19 Atorvastatin* (Atorvastatin*) 80 Mg Tablet, 80 MG PO HS for 30 Days, TAB 3 Refills Prov:TONIE MCCABE MD 01/08/19 Allergies Allergies: Coded Allergies: Penicillins (Verified Allergy, Unknown, 01/16/19) meperidine HCl (Verified Allergy, Unknown, 01/16/19) morphine (Verified Allergy, Unknown, 01/16/19) PMhx/Soc History of Surgery: Yes (cabg 2001, stents 1995 and 2015) Anesthesia Reaction: No Hx Neurological Disorder: No Hx Respiratory Disorders: Yes (lung CA, COPD) Hx Cardiac Disorders: Yes (htn, CAD, CHF) Hx Psychiatric Problems: No Hx Miscellaneous Medical Probl: No Hx Alcohol Use: No Hx Substance Use: No Hx Tobacco Use: No Smoking Status: Never smoker FmHx Family History: No diabetes Physical Exam Vitals Vital Signs Date Temp Pulse Resp B/P (MAP) Pulse Ox O2 O2 Flow FiO2 Time Delivery Rate 01/16/19 98.1 77 18 127/57 95 16:01 (80) 01/16/19 98.1 68 18 113/59 95 13:23 (77) Physical Exam Const: No apparent distress, well-developed, well-nourished Head: Normocephalic, Atraumatic Eyes: Normal Conjunctiva. Extraocular movements intact. Pupils equal, round and reactive to light ENT: Normal External Ears, Nose and Mouth. Neck: Full range of motion. No meningismus. Resp: Bibasilar rales. No wheezes or rhonchi. No respiratory distress. Cardio: Regular rate and rhythm. No murmurs, rubs or gallops Abd: Soft, non tender, non distended. Normal bowel sounds Skin: No petechiae or rashes Back: No midline tenderness. No CVA tenderness Ext: No cyanosis, or edema Neur: Awake and alert, oriented 4. Cranial nerves intact. No facial droop. Normal strength, sensation and coordination. Psych: Normal Mood and Affect Result Diagram: 01/16/19 1347 01/16/19 1347 Results 24 hrs Laboratory Tests Test 01/16/19 13:47 White Blood Count 8.3 10^3/ul Red Blood Count 4.91 10^6/ul Hemoglobin 13.7 g/dl Hematocrit 44.0 % Mean Corpuscular Volume 89.6 fl Mean Corpuscular Hemoglobin 27.9 pg Mean Corpuscular Hemoglobin Concent 31.1 g/dl Red Cell Distribution Width 13.4 % Platelet Count 304 10^3/UL Mean Platelet Volume 10.5 fl Immature Granulocytes % 0.600 % Neutrophils % 69.0 % Lymphocytes % 17.6 % Monocytes % 7.6 % Eosinophils % 4.5 % Basophils % 0.7 % Nucleated Red Blood Cells % 0.0 /100WBC Immature Granulocytes # 0.050 10^3/ul Neutrophils # 5.7 10^3/ul Lymphocytes # 1.5 10^3/ul Monocytes # 0.6 10^3/ul Eosinophils # 0.4 10^3/ul Basophils # 0.1 10^3/ul Nucleated Red Blood Cells # 0.0 10^3/ul Prothrombin Time 13.8 Sec Prothrombin Time Ratio 1.1 INR International Normalized Ratio 1.05 Urine Color YELLOW Urine Clarity CLEAR Urine pH 7.0 Urine Specific [place] 1.008 Urine Ketones NEGATIVE mg/dL Urine Nitrite NEGATIVE mg/dL Urine Bilirubin NEGATIVE mg/dL Urine Urobilinogen NEGATIVE mg/dL Urine Leukocyte Esterase NEGATIVE Sole/ul Urine Hemoglobin NEGATIVE mg/dL Urine Glucose NEGATIVE mg/dL Urine Total Protein NEGATIVE mg/dl Sodium Level 143 mmol/L Potassium Level 3.6 mmol/L Chloride Level 101 mmol/L Carbon Dioxide Level 33 mmol/L Anion Gap 9 Blood Urea Nitrogen 25 mg/dl Creatinine 1.17 mg/dl Est Glomerular Filtrat Rate mL/min mL/min Glucose Level 146 mg/dl Calcium Level 8.6 mg/dl Total Bilirubin 0.6 mg/dl Direct Bilirubin 0.00 mg/dl Indirect Bilirubin 0.6 mg/dl Aspartate Amino Transf (AST/SGOT) 21 IU/L Alanine Aminotransferase (ALT/SGPT) 25 IU/L Alkaline Phosphatase 81 IU/L Troponin I < 0.012 ng/ml B-Type Natriuretic Peptide 787 PG/ML Total Protein 7.3 g/dl Albumin 3.9 g/dl Globulin 3.40 g/dl Albumin/Globulin Ratio 1.14 Current Medications Medications Dose Sig/Chantelle Start Time Status Last (Trade) Ordered Route PRN Stop Time Admin Dose Reason Admin Furosemide 40 mg ONCE ONCE 01/16/19 DC 01/16/19 (Lasix) IV 15:30 15:50 01/16/19 15:44 Procedures/MDM MDM The patient's presentation warrants further investigation. Previous medical records, if available, were reviewed. LABS The patient's laboratory testing was obtained and reviewed. No emergent treatment was required unless described below. CBC: Mild normocytic anemia, not emergent. No E/o systemic infection or severe anemia or thrombocytopenia Chemistry: Metabolic alkalosis, likely compensatory to obstructive pulmonary disease and chronic respiratory acidosis. Mildly elevated BUN, likely related to volume depletion from diuresis, not emergent. No E/o severe acidosis or renal failure or liver disease or diabetic ketoacidosis PT/INR: No E/o significant coagulopathy Troponin: No E/o acute ischemia BNP: Indeterminate, significantly improved, low clinical suspicion for an acute heart failure exacerbation. Urine: No E/o acute infection or hematuria EKG EKG read by me: Rate/Rhythm: Regular rate and rhythm at a rate of 65 bpm Intervals: Normal [place]: Normal Impression: T wave inversions in the anterior leads, improved from a previous EKG from January 11, 2019. No evidence of acute ischemia or arrhythmia IMAGING Imaging and Radiology interpretation reviewed. CXR FINDINGS: The heart is enlarged. The thoracic aorta is calcified. There is a right lower lobe infiltrate and right lower lobe atelectasis. There is a small right pleural effusion. There is no pneumothorax. IMPRESSION: Mild cardiomegaly. Calcified aorta consistent with atherosclerotic disease. Right lower lobe infiltrate and atelectasis and a small right pleural effusion. Electronically viewed and signed by .Brandon Cho MD, on 01/16/2019 14:47 TREATMENT/DISPOSITION The patient presents for persistent chronic shortness of breath. The patient has a known history of lung cancer, coronary artery disease and heart failure. That said, the patient is not in any respiratory distress at this time. He is oxygenating in the mid 90s on room air. The patient may continue taking his medications as prescribed. The patient already has home O2 therapy available to him. The patient has been admitted twice in the last 2 weeks with appropriate medical management and appropriate consultation with cardiology and pulmonology. The patient's laboratory testing today demonstrates improvement of his symptoms. The patient was given a dose of IV Lasix in the emergency department. He needs to follow-up with cardiology and pulmonology in an outpatient setting, but I do not feel the patient requires admission today. I discussed the case with the patient's previous admitting physician, Dr. Mccabe, who knows the patient very well. He agrees that the patient would not benefit from further inpatient management at this time. The patient's chest xray does not reveal pneumothorax or pleural effusions or significant pulmonary edema. It does continue to show a persistent right lower lobe infiltrate. The patient was recently diagnosed with pneumonia and is actively being treated. The infiltrate could be present for weeks after the diagnosis. The patient is currently afebrile, and I do not suspect an infectious etiology of symptoms today. The patient is not septic. He is not in respiratory distress. I do not feel the patient requires readmission for this known diagnosis that is already being treated. The patient does not have a widened mediastinum and does not have signs or symptoms concerning for thoracic aortic aneurysm or dissection. The patient does not have pneumomediastinum or signs concerning for esophageal tear or rupture. The patient has no clinical or radiographic signs of pericardial effusion or tamponade. The patient does not have pneumoperitoneum and I have decreased suspicion of viscus perforation as possible referred pain. The patient does have a diagnosis of COPD but he is not wheezing today. There is no evidence of a acute COPD exacerbation today. The patient is not tachypneic or hypoxic. The patient is breathing comfortably and without pleuritic pain. The patient is not on hormonal therapy. The patient has no history of clotting or bleeding disorders. The patient has no calf tenderness. The patient has had no hemoptysis. There are more likely alternative diagnoses and heart failure. I have decreased suspicion for PE. The patient also endorses apparent urinary retention. The patient does have a history of BPH which could be contributory today. Given that the patient does have heart failure, cardiorenal syndrome was also considered. The patient's renal function is at his baseline and my suspicion for this etiology is low. The patient does not have any palpable pulsatile mass or severe abdominal pain radiating to the back. I have low suspicion for aortic aneurysm, dissection or rupture. I do not suspect that the patient's cardiac and renal symptoms are related. The patient does not have any evidence of peritonitis. The patient does not have clinical symptoms concerning for mesenteric ischemia or ischemic colitis. The patient does not have right upper quadrant tenderness, and I have low suspicion for gallstones, cholecystitis or biliary colic. The patient does not have any epigastric pain. I have low suspicion for gastritis, PUD or GERD. The patient does not have left upper quadrant tenderness. I have low suspicion for pancreatitis. The patient does not have any right lower quadrant tenderness, or periumbilical tenderness. I have low suspicion for appendicitis. The patient does not have suprapubic tenderness. I have decreased suspicion for cystitis. The patient does not have any left lower quadrant tenderness, and I have low suspicion for diverticulosis or diverticulitis. The patient does not have any flank tenderness. The patient does not have gross hematuria. I have decreased suspicion for nephrolithiasis or renal colic. The patient was treated with Lasix in the emergency department. DISCHARGE Upon reevaluation of the patient, symptoms have improved. No emergent diagnoses were identified. At this time, I feel that the patient stable for discharge. The patient was instructed to follow-up with a primary care physician in 1-3 days. The patient will be given strict precautions with which to return to the emergency department. Prescriptions: None Disclaimer: Inadvertent spelling and grammatical errors are likely due to EHR/dictation software use and do not reflect on the overall quality of patient care. Note that the electronic time recorded on this note does not necessarily reflect the actual time of the patient encounter. Departure Diagnosis: Primary Impression: Shortness of breath Additional Impressions: Chronic CHF Heart failure type: unspecified Qualified Codes: I50.9 - Heart failure, unspecified Urinary retention Normocytic anemia Metabolic alkalosis Elevated BUN Condition: Stable Patient Instructions: Coping with Heart Failure, Treatments for COPD, Urinary Retention, Male Additional Instructions: It is very important that you follow-up with your physicians in an outpatient setting. Please call today to schedule appointments. Thank you for for coming to [facility] for your care today. Please ask your nurse or provider if you have questions about your care today and do not leave until all your questions have been answered. Please use any medications given as directed and follow-up with your doctor (or the doctor you were referred to) in the next 1-3 days. If you do not have a primary care doctor you may follow up at the [facility] or [facility] (listed below). You may also use motrin and tylenol as needed for fever and/or pain unless instructed otherwise by your provider or nurse. Indications for more urgent follow-up have been discussed, but you may return to the Emergency Department at ANY time for any worrisome or worsening symptoms. If you have abdominal pain, please know that no test or exam you received is perfect and you should follow up within 8 hours for continued pain. If you had any imaging studies today, such as an X-Ray or CT Scan, these studies will be reviewed later by a radiologist. You will be called if there are important findings that were not identified today, so make sure the contact information you provided at registration is correct. If you received any narcotic pain control medicine today, such as Vicodin, Morphine or Dilaudid, your coordination and judgment may be affected for a number of hours. Please do not drive or operate heavy machinery, and you may want someone to assist you at home. If you were given a prescription for narcotic medication, be aware that it is very addictive- use sparingly and only if necessary. PLEASE SEEK FURTHER EVALUATION AND MANAGEMENT AT YOUR DOCTORS OFFICE WITHIN THE NEXT 1-3 DAYS. IT IS YOUR RESPONSIBILITY TO MAKE AN APPOINTMENT FOR FOLOW-UP CARE. IF YOU HAVE A PRIMARY DOCTOR, PLEASE CALL THEIR OFFICE TO SCHEDULE AN APPOINTMENT FOR FOLLOW UP. IF YOU DO NOT HAVE A PRIMARY DOCTOR YOU CAN CALL OUR PHYSICIAN REFERRAL HOTLINE AT IF YOU CAN NOT AFFORD TO SEE A PHYSICIAN YOU CAN CHOSE FROM THE FOLLOWING [facility] CLINICS: [facility] [address]. [facility] [address] [facility] [address] [facility]. [facility] [address] [facility]. [facility] [address] [facility]. [facility]. [address] NEHA BARRERA MD Jan 16, 2019 13:58
[2019-01-16] MEDS ORDERED: FUROSEMIDE 40 MG INJ IV ONE (15:30)
[2019-01-16] MEDS ORDERED: ESOM40CA PO (15:40)
[2019-01-16] MEDS ORDERED: CLOP75TA19 PO (15:40)
[2019-01-16] MEDS ORDERED: HYDR-3980 PO (15:41)
[2019-01-16] MEDS ORDERED: MECL-77 PO (15:41)
[2019-01-16] MEDS ORDERED: LORA-444 PO (15:42)
[2019-01-16 17:11] VITALS: BP 148/62; PULSE 76; RESP 20
== END 2019-01-16 17:12 | disposition home or self-care (01) ==
LOC: E/R 13:18
DX: I50.9 Heart failure, unspecified (principal); D64.9 Anemia, unspecified; E87.3 Alkalosis; R33.9 Retention of urine, unspecified; J44.9 Chronic obstructive pulmonary disease, unspecified; I10 Essential (primary) hypertension; I25.10 Atherosclerotic heart disease of native coronary artery without angina pectoris; Z85.118 Personal history of other malignant neoplasm of bronchus and lung; Z79.82 Long term (current) use of aspirin
CPT/HCPCS: 36415; 71045; 80053; 81003; 83880; 84484; 85025; 85610; 93005; 96374; 99284; J1940

== ENCOUNTER 2019-02-08 12:44 | Emergency (ER) | payer MEDICARE, OTHER ==
[~2019-02-08] VITALS: Ht 172.7 cm; Wt 95.5 kg
[~2019-02-08 12:44] MED LIST changes: +ALBU18HF INHALATION; +ATOR-2 PO; -CLON1TAB13 PO; +DOXY100T20 PO; +ESCI10TA48 PO; +ESOM40CA PO; -FURO40TA4 PO; +HYDR-3980 PO; -ISOS10TA2 PO; +ISOS30TA67 PO; +LEVO500T10 PO; +LORA-444 PO; +LOSA25TA12 PO; +MECL-77 PO
[2019-02-08 12:57] VITALS: Ht 172.7 cm; Wt 95.5 kg
[2019-02-08] MEDS ORDERED: AZITHROMYCIN 500MG/NS (PMX) 250 ML IV STA (13:27)
[2019-02-08] MEDS ORDERED: CEFTRIAXONE 1 GM/50 ML (PMX) 50 ML IVPB STA (13:27)
[2019-02-08] MEDS ORDERED: ALBUTEROL 0.083% (NEB) 2.5 MG/3 ML AMP INH ONE (13:30)
[2019-02-08] MEDS ORDERED: IPRATROPIUM (NEB) 0.5 MG/2.5 ML AMP INH ONE (13:30)
[2019-02-08] MEDS ORDERED: DEXAMETHASONE 10 MG/ML 1 ML INJ IV ONE (13:30)
[2019-02-08] MEDS ORDERED: SOD CHLORIDE 0.9% 1,000 ML IV STA (15:26)
--- NOTE | 2019-02-08 16:50 | ERD ---
ER Documentation Chief Complaint Chief Complaint COUGH, BODYACHES, WEAKNESS X3 DAYS, LOW BP HPI 73-year-old male who presents to the emergency room with multiple complaints. His main complaint is 3 days of wheezing cough and shortness of breath. He states the cough is dry nonproductive. He has a history of subacute lung cancer no longer receiving chemo or radiation. Patient additionally has COPD. He is no longer smoking. Patient is very concerned because he had a friend that had MRSA pneumonia. He feels like he might have MRSA pneumonia. He denies any chest pain or exertional symptoms. ROS All systems reviewed and are negative except as per history of present illness. Medications Home Meds Active Scripts Doxycycline Hyclate* (Doxycycline Hyclate*) 100 Mg Tablet.dr, 100 MG PO BID for 7 Days, TAB Prov:FLORIDA DARDEN MD 02/08/19 Albuterol Sulfate* (Ventolin HFA*) 18 Gm Hfa.aer.ad, 2 PUFF INHALATION Q4H, #1 INHALER Prov:FLORIDA DARDEN MD 02/08/19 Furosemide* (Lasix*) 40 Mg Tablet, 40 MG PO DAILY for 30 Days, TAB 3 Refills Prov:TONIE MCCABE MD 01/13/19 Albuterol/Ipratropium* (Combivent Respimat*) 20-100 Mcg/Inh - 4 Gm Aer.w.adap, 1 PUFF INHALATION QID for 30 Days, #1 INHALER Prov:TONIE MCCABE MD 01/13/19 Aspirin (Aspirin) 81 Mg Chew, 81 MG PO DAILY for 30 Days, TAB Prov:TONIE MCCABE MD 01/13/19 Reported Medications Losartan Potassium* (Losartan Potassium*) 25 Mg Tablet, 25 MG PO BID, TAB 02/08/19 Isosorbide Mononitrate* (Isosorbide Mononitrate*) 30 Mg Tab.er.24h, 30 MG PO BID, TAB 02/08/19 Escitalopram Oxalate* (Escitalopram Oxalate*) 10 Mg Tablet, 10 MG PO NEEDED, #30 TAB 02/08/19 Atorvastatin* (Atorvastatin*) 80 Mg Tablet, 80 MG PO QHS, #30 TAB 02/08/19 Levofloxacin* (Levofloxacin*) 500 Mg Tablet, 500 MG PO DAILY, TAB FOR 10 DAYS, START DATE 01/31/19 02/08/19 Metoprolol Succinate* (Toprol XL*) 25 Mg Tab.sr.24h, 25 MG PO BID, #30 TAB 02/08/19 Hydrocodone/Acetaminophen ([place] 10-325 Tablet) 1 Each Tablet, 1 EACH PO BID, TAB 01/16/19 Meclizine Hcl* (Meclizine Hcl*) 25 Mg Tablet, 25 MG PO Q8H PRN for DIZZINESS, TAB 01/16/19 Clopidogrel Bisulfate* (Clopidogrel Bisulfate*) 75 Mg Tablet, 75 MG PO DAILY, #30 TAB 01/16/19 Potassium Chloride* (Klor-Con*) 8 Meq Tablet.sa, 8 MEQ PO BID, TAB 10/09/18 Amlodipine Besylate* (Amlodipine Besylate*) 10 Mg Tablet, 10 MG PO DAILY, #30 TAB 10/09/18 Tamsulosin Hcl* (Tamsulosin Hcl*) 0.4 Mg Cap.er.24h, 0.4 MG PO BID, CAP 04/25/18 Discontinued Reported Medications Lorazepam* (Ativan*) 2 Mg Tablet, 2 MG PO BID PRN for ANXIETY, #30 TAB 01/16/19 Esomeprazole Mag Trihydrate (Nexium) 40 Mg Capsule.dr, 40 MG PO DAILY, #30 CAP 01/16/19 Rosuvastatin Calcium (Rosuvastatin Calcium) 10 Mg Tablet, 1 TAB ORAL QHS 01/11/19 Metoprolol Tartrate* (Lopressor*) 50 Mg Tab, 1 TAB ORAL BID 01/11/19 Allergies Allergies: Coded Allergies: Penicillins (Verified Allergy, Unknown, 02/08/19) meperidine HCl (Verified Allergy, Unknown, 02/08/19) morphine (Verified Allergy, Unknown, 02/08/19) PMhx/Soc History of Surgery: Yes (cabg 2001, stents 1995 and 2015) Anesthesia Reaction: No Hx Neurological Disorder: No Hx Respiratory Disorders: Yes (lung CA, COPD) Hx Cardiac Disorders: Yes (htn, CAD, CHF) Hx Psychiatric Problems: No Hx Miscellaneous Medical Probl: No Hx Alcohol Use: No Hx Substance Use: No Hx Tobacco Use: No Smoking Status: Never smoker Physical Exam Vitals Vital Signs Date Temp Pulse Resp B/P (MAP) Pulse Ox O2 O2 Flow FiO2 Time Delivery Rate 02/08/19 99.3 92 17 113/49 98 2.0 15:26 (70) 02/08/19 81 18 98 Nasal 2.0 13:44 Cannula 02/08/19 Nasal 2 13:20 Cannula 02/08/19 99.3 83 17 94/53 (67) 95 12:57 Physical Exam General: Well developed, well nourished, no acute distress Head: Normocephalic, atraumatic. Eyes: Pupils equally reactive, EOM intact ENT: Moist mucous membranes Neck: Supple, no lymphadenopathy Respiratory: Scant rales at the right lung base, no distress, talking in full sentences Cardiovascular: RRR, no murmurs, rubs, or gallops Abdominal: Soft, non-tender, non-distended, no peritoneal signs : Deferred MSK: No edema, no unilateral swelling, 5/5 strength Neurologic: Alert and oriented, moving all extremities, normal speech, no focal weakness, no cerebellar signs Skin: No rash Psych: Normal mood Result Diagram: 02/08/19 1347 02/08/19 1347 Results 24 hrs Laboratory Tests Test 02/08/19 13:47 White Blood Count 6.2 10^3/ul Red Blood Count 4.92 10^6/ul Hemoglobin 13.5 g/dl Hematocrit 44.0 % Mean Corpuscular Volume 89.4 fl Mean Corpuscular Hemoglobin 27.4 pg Mean Corpuscular Hemoglobin Concent 30.7 g/dl Red Cell Distribution Width 13.2 % Platelet Count 190 10^3/UL Mean Platelet Volume 10.2 fl Immature Granulocytes % 0.500 % Neutrophils % 79.7 % Lymphocytes % 15.7 % Monocytes % 3.1 % Eosinophils % 0.5 % Basophils % 0.5 % Nucleated Red Blood Cells % 0.0 /100WBC Immature Granulocytes # 0.030 10^3/ul Neutrophils # 4.9 10^3/ul Lymphocytes # 1.0 10^3/ul Monocytes # 0.2 10^3/ul Eosinophils # 0.0 10^3/ul Basophils # 0.0 10^3/ul Nucleated Red Blood Cells # 0.0 10^3/ul Sodium Level 141 mmol/L Potassium Level 4.0 mmol/L Chloride Level 101 mmol/L Carbon Dioxide Level 32 mmol/L Anion Gap 8 Blood Urea Nitrogen 15 mg/dl Creatinine 0.98 mg/dl Est Glomerular Filtrat Rate mL/min mL/min Glucose Level 196 mg/dl Calcium Level 8.3 mg/dl Current Medications Medications Dose Sig/Chantelle Start Time Status Last (Trade) Ordered Route PRN Stop Time Admin Dose Reason Admin Albuterol 2.5 mg ONCE ONCE 02/08/19 DC 02/08/19 (Proventil INH 13:30 02/08/19 13:43 0.083% (Neb)) 13:31 Ipratropium 0.5 mg ONCE ONCE 02/08/19 DC 02/08/19 [place] INH 13:30 02/08/19 13:43 (Atrovent 13:31 0.02% (Neb)) Azithromycin 250 ml @ ONCE STAT 02/08/19 DC 02/08/19 250 mls/hr IV 13:27 02/08/19 14:29 14:26 Ceftriaxone 50 ml @ ONCE STAT 02/08/19 DC 02/08/19 Sodium 100 mls/hr IVPB 13:27 02/08/19 13:58 13:56 10 mg ONCE ONCE 02/08/19 DC 02/08/19 Dexamethasone IV 13:30 02/08/19 13:58 (Decadron) 13:31 Sodium 1,000 ml @ Q1H STAT 02/08/19 DC 02/08/19 Chloride 1,000 mls/hr IV 15:26 02/08/19 15:10 16:25 Procedures/MDM EKG, MONITORS, & DIAGNOSTIC IMAGING: Chest x-ray: IMPRESSION: Persistent right pleural effusion with right lung base atelectasis/infiltrate. RPTAT: PP LAB INTERPRETATION: I reviewed the laboratory testing and it shows no evidence of acute process MEDICAL DECISION MAKING: The patient presents with cough. He is on 2 L of home oxygen and does not have any increased oxygen requirement. Consider possible COPD exacerbation versus pneumonia. No signs or symptoms concerning for pulmonary embolism. Triage blood pressure was in the 90s but upon placement without intervention his blood pressure was in the 120s. I do not believe this is consistent with severe sepsis or septic shock. Patient has no sirs criteria. ER COURSE: * The patient was treated with blood cultures and ceftriaxone and azithromycin. He was given a breathing treatment and steroids to treat COPD exacerbation and cover for possible community acquired pneumonia. * Patient continues to be extremely well-appearing in the emergency room setting. No respiratory distress, no increased oxygen requirement. * the patient's curb 65 score is 2 placing the patient at 6.8% risk of 31 mortality. I discussed and recommended inpatient therapy but the patient pr efers discharge. This seems to be reasonable with prompt and close follow-up. * At this point the patient will be discharged based on his wishes. CONSULTATION: None DISPOSITION PLAN: The patient does not have an identifiable emergent medical condition that warrants inpatient hospitalization at this time. The patient is deemed safe for discharge with outpatient follow-up. We discussed follow up with the patient's primary care doctor within 24 to 48 hours as needed. We also discussed return to the emergency room for worsening symptoms or worsening condition. Outpatient referral: None required Discharge Medications: Doxycycline, Ventolin Departure Diagnosis: Primary Impression: COPD exacerbation Additional Impression: Community acquired pneumonia Laterality: right Lung location: lower lobe of lung Qualified Codes: J18.1 - Lobar pneumonia, unspecified organism Condition: Stable Patient Instructions: Copd Flare, Pneumonia (Adult) Additional Instructions: Call your primary care doctor TOMORROW for an appointment during the next 1 WEEK.Tell the audio visual secretary that you were referred from this facility.See the doctor sooner or return here if your condition worsens before your appointment time. FLORIDA DARDEN MD Feb 08, 2019 16:50
[2019-02-08 18:25] VITALS: BP 130/60; PULSE 70; RESP 16
== END 2019-02-08 18:25 | disposition home or self-care (01) ==
LOC: E/R 12:44
DX: J44.9 Chronic obstructive pulmonary disease, unspecified (principal); J18.1 Lobar pneumonia, unspecified organism; I50.9 Heart failure, unspecified; I25.10 Atherosclerotic heart disease of native coronary artery without angina pectoris; I11.0 Hypertensive heart disease with heart failure; Z79.82 Long term (current) use of aspirin; Z85.118 Personal history of other malignant neoplasm of bronchus and lung; Z95.1 Presence of aortocoronary bypass graft; Z98.61 Coronary angioplasty status
CPT/HCPCS: 71045; 80048; 85025; 87040; 94664; J0456; J0696; J1100; J7030; 96361; 96365; 96367; 96375

== ENCOUNTER 2019-03-09 09:53 | Inpatient (IN) | payer MEDICARE, OTHER ==
[~2019-03-09] VITALS: Ht 172.7 cm; Wt 98.6 kg
[~2019-03-09 09:53] MED LIST changes: -ESOM40CA PO; -LORA-444 PO; -METO-429 ORAL; -ROSU10TA26 ORAL
[2019-03-09] MEDS ORDERED: ALBUTEROL 0.5% (NEB) 2.5 MG/0.5 ML AMP INH STA (10:02)
[2019-03-09] MEDS ORDERED: ASPIRIN 325 MG TAB PO STA (10:02)
[2019-03-09] MEDS ORDERED: DEXAMETHASONE 10 MG/ML 1 ML INJ IV ONE (11:00)
[2019-03-09] MEDS ORDERED: CEFTRIAXONE 1 GM/50 ML (PMX) 50 ML IVPB ONE (11:00)
[2019-03-09] MEDS ORDERED: AZITHROMYCIN 500 MG TAB PO ONE (11:00)
[2019-03-09] MEDS ORDERED: ACETAMINOPHEN 325 MG TAB PO PRN (11:30)
[2019-03-09] MEDS ORDERED: ONDANSETRON 4 MG INJ IV PRN (11:30)
[2019-03-09] MEDS ORDERED: FUROSEMIDE 40 MG INJ IV ONE (11:30)
[2019-03-09] MEDS ORDERED: ENOXAPARIN 100 MG/ML SYG SC ONE (11:30)
[2019-03-09] MEDS ORDERED: FAMOTIDINE 20 MG INJ IV ONE (15:00)
[2019-03-09] MEDS ORDERED: NACL 0.9% 3 ML SYG IV SCH (15:00)
[2019-03-09] MEDS ORDERED: MECLIZINE 25 MG TAB PO PRN (15:00)
[2019-03-09] MEDS: POTASSIUM CHLORIDE (SR) 8 MEQ CAP PO SCH ×2 (15:36→20:47)
[2019-03-09] MEDS: ENOXAPARIN 40 MG/0.4 ML SYG SC SCH (16:40)
[2019-03-09] MEDS: ASPIRIN 81 MG TAB PO SCH (16:40)
[2019-03-09] MEDS: CLOPIDOGREL 75 MG TAB PO SCH (16:41)
[2019-03-09 17:25] VITALS: BP 169/85; PULSE 79; RESP 18
[2019-03-09] MEDS: LOSARTAN 25 MG TAB PO SCH ×2 (18:12→20:46)
[2019-03-09] MEDS: ISOSORBIDE MONONITRATE(SR)30 MG TAB PO SCH ×2 (18:12→20:46)
[2019-03-09] MEDS: ESCITALOPRAM 10 MG TAB PO SCH (18:13)
[2019-03-09] MEDS: AMLODIPINE 10 MG TAB PO SCH (18:13)
[2019-03-09] MEDS: METOPROLOL (XL) 25 MG TAB PO SCH ×2 (18:14→20:48)
[2019-03-09] MEDS: TAMSULOSIN (SR) 0.4 MG CAP PO SCH ×2 (18:23→20:48)
[2019-03-09 18:31] VITALS: Ht 172.7 cm; Wt 98.6 kg
[2019-03-09 20:03] VITALS: BP 150/65; PULSE 74; RESP 18
[2019-03-09] MEDS: ALBUTEROL/IPRATROPIUM (NEB) 3 ML AMP HHN SCH (20:22)
[2019-03-09] MEDS: ATORVASTATIN 80 MG TAB PO SCH (20:47)
[2019-03-09] MEDS: HYDROCODONE/APAP (10/325) TAB PO PRN (20:48)
[2019-03-09] MEDS ORDERED: TAMSULOSIN (SR) 0.4 MG CAP PO SCH (21:00)
[2019-03-10 00:19] VITALS: BP 99/53; PULSE 72; RESP 18
[2019-03-10 04:30] VITALS: BP 96/50; PULSE 93; RESP 18
[2019-03-10 07:14] VITALS: BP 123/58; PULSE 75; RESP 20
[2019-03-10] MEDS: ALBUTEROL/IPRATROPIUM (NEB) 3 ML AMP HHN SCH ×5 (08:05→20:25)
[2019-03-10] MEDS: AMLODIPINE 10 MG TAB PO SCH (09:00)
[2019-03-10] MEDS: METOPROLOL (XL) 25 MG TAB PO SCH ×2 (09:00→20:22)
[2019-03-10] MEDS: AZITHROMYCIN 250 MG TAB PO SCH (09:41)
[2019-03-10] MEDS: CLOPIDOGREL 75 MG TAB PO SCH (09:42)
[2019-03-10] MEDS: ESCITALOPRAM 10 MG TAB PO SCH (09:42)
[2019-03-10] MEDS: LOSARTAN 25 MG TAB PO SCH ×3 (09:43→21:00)
[2019-03-10] MEDS: POTASSIUM CHLORIDE (SR) 8 MEQ CAP PO SCH (09:43)
[2019-03-10] MEDS: FUROSEMIDE 40 MG INJ IV SCH (09:44)
[2019-03-10] MEDS: ASPIRIN 81 MG TAB PO SCH (09:44)
[2019-03-10] MEDS: ENOXAPARIN 40 MG/0.4 ML SYG SC SCH (09:54)
[2019-03-10] MEDS: DOCUSATE SODIUM 100 MG CAP PO SCH ×2 (11:32→20:18)
[2019-03-10 11:42] VITALS: BP 115/56; PULSE 65; RESP 18
[2019-03-10] MEDS: ISOSORBIDE MONONITRATE(SR)30 MG TAB PO SCH ×2 (12:42→20:18)
[2019-03-10] MEDS: FAMOTIDINE 20 MG TAB PO SCH ×2 (14:09→20:19)
[2019-03-10 15:35] VITALS: BP 110/51; PULSE 78; RESP 17
[2019-03-10] MEDS: HYDROCODONE/APAP (10/325) TAB PO PRN (18:52)
[2019-03-10] MEDS: ATORVASTATIN 80 MG TAB PO SCH (20:18)
[2019-03-10] MEDS: TAMSULOSIN (SR) 0.4 MG CAP PO SCH (20:19)
[2019-03-10 20:48] VITALS: BP 114/65; PULSE 85; RESP 18
[2019-03-11 00:26] VITALS: BP 110/56; PULSE 65; RESP 18
[2019-03-11 04:32] VITALS: BP 125/71; PULSE 70; RESP 20
[2019-03-11 07:36] VITALS: BP 159/67; PULSE 72; RESP 18
[2019-03-11] MEDS: ALBUTEROL/IPRATROPIUM (NEB) 3 ML AMP HHN SCH ×3 (08:47→13:26)
[2019-03-11] MEDS: CLOPIDOGREL 75 MG TAB PO SCH (08:59)
[2019-03-11] MEDS: FAMOTIDINE 20 MG TAB PO SCH ×2 (08:59→20:11)
[2019-03-11] MEDS: ISOSORBIDE MONONITRATE(SR)30 MG TAB PO SCH ×2 (08:59→20:11)
[2019-03-11] MEDS: AZITHROMYCIN 250 MG TAB PO SCH (08:59)
[2019-03-11] MEDS: DOCUSATE SODIUM 100 MG CAP PO SCH ×2 (08:59→20:11)
[2019-03-11] MEDS: ASPIRIN 81 MG TAB PO SCH (08:59)
[2019-03-11] MEDS: LOSARTAN 25 MG TAB PO SCH ×2 (09:00→20:11)
[2019-03-11] MEDS: ESCITALOPRAM 10 MG TAB PO SCH (09:00)
[2019-03-11] MEDS: METOPROLOL (XL) 25 MG TAB PO SCH ×2 (09:00→20:12)
[2019-03-11] MEDS: AMLODIPINE 10 MG TAB PO SCH (09:00)
[2019-03-11] MEDS: TAMSULOSIN (SR) 0.4 MG CAP PO SCH ×2 (09:00→20:12)
[2019-03-11] MEDS: FUROSEMIDE 40 MG INJ IV SCH (09:01)
[2019-03-11] MEDS: ENOXAPARIN 40 MG/0.4 ML SYG SC SCH (09:15)
[2019-03-11 11:45] VITALS: BP 149/70; PULSE 70; RESP 18
[2019-03-11] MEDS ORDERED: ALBUTEROL/IPRATROPIUM (NEB) 3 ML AMP HHN PRN (15:00)
[2019-03-11 15:37] VITALS: BP 135/80; PULSE 73; RESP 18
[2019-03-11 19:27] VITALS: BP 133/62; PULSE 82; RESP 18
[2019-03-11] MEDS: ATORVASTATIN 80 MG TAB PO SCH (20:11)
[2019-03-11] MEDS: HYDROCODONE/APAP (10/325) TAB PO PRN (23:27)
[2019-03-12 00:07] VITALS: BP 116/57; PULSE 72; RESP 20
[2019-03-12 03:47] VITALS: BP 108/55; PULSE 65; RESP 18
[2019-03-12 07:36] VITALS: BP 123/62; PULSE 70; RESP 18
[2019-03-12] MEDS ORDERED: BUMETANIDE 1 MG TAB PO SCH (09:00)
[2019-03-12] MEDS: ESCITALOPRAM 10 MG TAB PO SCH (09:03)
[2019-03-12] MEDS: FAMOTIDINE 20 MG TAB PO SCH (09:03)
[2019-03-12] MEDS: LOSARTAN 25 MG TAB PO SCH (09:03)
[2019-03-12] MEDS: ISOSORBIDE MONONITRATE(SR)30 MG TAB PO SCH (09:03)
[2019-03-12] MEDS: ASPIRIN 81 MG TAB PO SCH (09:04)
[2019-03-12] MEDS: AZITHROMYCIN 250 MG TAB PO SCH (09:04)
[2019-03-12] MEDS: TAMSULOSIN (SR) 0.4 MG CAP PO SCH (09:04)
[2019-03-12] MEDS: CLOPIDOGREL 75 MG TAB PO SCH (09:04)
[2019-03-12] MEDS: AMLODIPINE 10 MG TAB PO SCH (09:04)
[2019-03-12] MEDS: METOPROLOL (XL) 25 MG TAB PO SCH (09:04)
[2019-03-12] MEDS: DOCUSATE SODIUM 100 MG CAP PO SCH (09:04)
[2019-03-12] MEDS: ENOXAPARIN 40 MG/0.4 ML SYG SC SCH (09:12)
[2019-03-12 12:26] VITALS: BP 127/69; RESP 18
[2019-03-12 16:17] VITALS: BP 118/59; PULSE 73; RESP 18
== END 2019-03-12 20:16 | disposition home health service (06) | DRG 280 ==
LOC: E/R 09:53 → 6WM 11:27 → EDBEDREQ 11:49
PROVIDERS: ADMIT Internal Medicine; ATTEND Internal Medicine
PROC: 5A09357 Assistance with Respiratory Ventilation, Less than 24 Consecutive Hours, Continuous Positive Airway Pressure (ICD-10-PCS; principal; 2019-03-09)
DX: I11.0 Hypertensive heart disease with heart failure (principal); J96.02 Acute respiratory failure with hypercapnia; I21.4 Non-ST elevation (NSTEMI) myocardial infarction; J96.01 Acute respiratory failure with hypoxia; J44.1 Chronic obstructive pulmonary disease with (acute) exacerbation; M84.48XA Pathological fracture, other site, initial encounter for fracture; J44.9 Chronic obstructive pulmonary disease, unspecified; E87.5 Hyperkalemia; Z95.1 Presence of aortocoronary bypass graft; I25.10 Atherosclerotic heart disease of native coronary artery without angina pectoris; I50.43 Acute on chronic combined systolic (congestive) and diastolic (congestive) heart failure; E78.5 Hyperlipidemia, unspecified; N40.0 Benign prostatic hyperplasia without lower urinary tract symptoms; F32.9 Major depressive disorder, single episode, unspecified; Z79.82 Long term (current) use of aspirin; Z79.02 Long term (current) use of antithrombotics/antiplatelets; Z91.14 Patient's other noncompliance with medication regimen; Z87.891 Personal history of nicotine dependence; Z95.0 Presence of cardiac pacemaker; Z95.5 Presence of coronary angioplasty implant and graft; Z85.118 Personal history of other malignant neoplasm of bronchus and lung
CPT/HCPCS: 36415; 71045; 71046; 71100; 80048; 80053; 82803; 83735; 83880; 84484; 85025; 85378; 85651; 93005; 93970; 94640; 94660; 94664; 96372; 96374; 96375; J0696; J1100; J1650; J1940; J2405